=== PATIENT | female | born 1970 | race Caucasian/White ===

== ENCOUNTER → 2016-09-14 | Outpatient (CLI) | payer BC ==
[2016-09-14 12:22] VITALS: BMI 50.1
== END | disposition home or self-care (01) ==
LOC: BARWHC3 08:35
PROVIDERS: ATTEND Surgery Plastic and Reconstructive Surgery
DX: Z71.3 Dietary counseling and surveillance (principal); E66.01 Morbid (severe) obesity due to excess calories; Z68.43 Body mass index [BMI] 50.0-59.9, adult
CPT/HCPCS: 97804

== ENCOUNTER → 2016-09-17 | Outpatient (CLI) | payer BC ==
[2016-09-17 11:07] LABS: EKG EKG PERFORMED
[2016-09-17 11:36] LABS: Basophils # (A) 0.1 k/uL (0-0.2); Basophils % (A) 1 %; CH 29.3; CHCM 32.8; Eosinophils # (A) 0.1 k/uL (0-0.7); Eosinophils % (A) 2 %; HCT 50.6 % (34.0-46.0); HDW 2.48; HGB 16.3 gm/dL (11.4-16.0); Luc # (Auto) 0.21; Luc % (Auto) 3; Lymphocytes # (A) 2.4 k/uL (1.0-4.8); Lymphocytes % (A) 35 %; MCH 28.9 pg (25.0-35.0); MCHC 32.2 g/dL (31.0-37.0); MCV 89.6 fL (80.0-100.0); Mean Platelet Volume 5.9; Monocytes # (A) 0.3 k/uL (0-1.0); Monocytes % (A) 5 %; Neutrophils # (A) 3.6 k/uL (1.3-7.7); Neutrophils % (A) 54 %; RBC 5.65 m/uL (3.80-5.40); RDW 12.9 % (11.5-15.5); WBC 6.8 k/uL (3.8-10.6); WBC (Perox) 6.96
[2016-09-17 12:07] LABS: ALT 89 U/L (9-52); AST 48 U/L (14-36); Alkaline Phosphatase 117 U/L (38-126); Anion Gap 14 mmol/L; Blood Urea Nitrogen 14 mg/dL (7-17); Calcium 9.7 mg/dL (8.4-10.2); Carbon Dioxide 25 mmol/L (22-30); Chloride 101 mmol/L (98-107); Glucose 162 mg/dL (74-99); Non-African American GFR(MDRD) >60 (>60 ml/min/1.73 sqM); Potassium 4.5 mmol/L (3.5-5.1); Sodium 140 mmol/L (137-145); Total Bilirubin 0.7 mg/dL (0.2-1.3); Total Protein 7.3 g/dL (6.3-8.2)
== END | disposition home or self-care (01) ==
LOC: LABPAT 10:50
PROVIDERS: ATTEND Surgery Plastic and Reconstructive Surgery
DX: Z01.812 Encounter for preprocedural laboratory examination (principal); I10 Essential (primary) hypertension
CPT/HCPCS: 80053; 85025; 93005

== ENCOUNTER → 2016-09-17 | Outpatient (CLI) | payer BC ==
[2016-09-17 09:34] VITALS: BP 126/74; PULSE 79; RESP 16; TEMP 98.2; BMI 50.0
--- NOTE | 2016-09-27 13:36 | P.PN ---
Progress Note - Text DATE OF SERVICE: 09/17/2016 CHIEF COMPLAINT: Bariatric assessment. HISTORY OF PRESENT ILLNESS: Cynthia Holbrook is a 45-year-old female who is undergoing bariatric program. She initially had weighed about 299 pounds for a 5 foot 4 inch frame. Today she comes in weighing 291 pounds. Patient has lost 8 pounds in approximately 4 months. Body mass index is reduced from 51.4 down to 50. Her ideal body weight for her 5 feet 4 inch frame is 144 pounds. Incidentally, she has undergone work up and was found to be newly diagnosed diabetic. She reports chronic diarrhea as well as a strong family history of gallbladder disease. The patient is also looking into cholecystectomy. With her comorbidities including obstructive sleep, osteoarthritis, gastroesophageal reflux disease, Shelton's esophagus and diabetes type 2, she is looking into a Yayo-en-Y gastric bypass. She has completed medical risk assessment as well as medical weight loss attempt as well. PAST MEDICAL HISTORY: 1. Hypertension. 2. Morbid obesity. 3. Sleep apnea. 4. Gastroesophageal reflux disease. 5. Shelton esophagus. 6. Depression. 7. Cervical cancer. 8. Irritable bowel syndrome. 9. Newly diagnosed diabetes type 2, not insulin-dependent. PAST SURGICAL HISTORY: 1. Upper endoscopy. 2. Appendectomy. 3. Hysterectomy. MEDICATIONS: 1. Metformin. 2. Norvasc. 3. Valsartan hydrochlorothiazide. 4. Zantac. 5. Omeprazole. 6. [place]. 7. Prozac. ALLERGIES: IBUPROFEN. SOCIAL HISTORY: Remote tobacco user. Last tobacco use over 6 months. She is accompanied by her who is also a smoker. She has a young child about 10 years with special needs. FAMILY HISTORY: Pertinent for morbid obesity, including diabetes. REVIEW OF SYSTEMS: GASTROINTESTINAL: History of gastroesophageal reflux disease including hiatal hernia and Shelton's esophagus. Also strong family history of gallbladder disease including chronic diarrhea secondary to her gallbladder dyskinesia. ENDOCRINE: Newly diagnosed non-insulin dependent diabetes type 2. Previous hemoglobin A1c was about 8.7. No reports of underlying thyroid disorder. CONSTITUTIONAL: [place] body weight of 144 pounds for a 5-foot, 4-inch frame. Present weight of 297 pounds. She is 153 pounds overweight. HEENT: No troubles with vision or hearing. No reports of dysphagia. RESPIRATORY: History of obstructive sleep apnea. Denies any active COPD. Former tobacco user. CARDIOVASCULAR: History of hypertension, uncontrolled on at least 2 to 3 different medications. No recent myocardial infarction. No reports of cardiac history. MUSCULOSKELETAL: Has osteoarthritis of the lower back, including bilateral hips and knees. NEURO: No reports of stroke or seizure disorders. PSYCH: History of depression without suicidal ideation. HEMATOLOGIC: No reports of easy bruising or bleeding. PHYSICAL EXAM: VITAL SIGNS: 78.2, 79, 16, 126/74; 5 feet 4 inches; 291 pounds. Body mass index of 50. GENERAL: Well-developed, pleasant female in no acute distress. HEENT: No scleral icterus. Extraocular movements grossly intact. Moist buccal mucosa. NECK: Supple without lymphadenopathy. CHEST: Nonlabored respirations with equal bilateral excursions. CARDIOVASCULAR: Regular rate and regular rhythm. ABDOMEN: Protuberant, soft, nontender, nondistended. MUSCULOSKELETAL: No clubbing, cyanosis or edema. NEURO: No focal or lateralizing signs. Cranial nerves 2-12 grossly within normal limits. PSYCH: Appropriate affect. Alert and oriented to person, place and time. LABS: Hemoglobin elevated at 16.3, white count normal at 6.8. Glucose elevated at 162. Previous hemoglobin A1c was 8.7. AST elevated at 48, down from 66. ALT elevated at 89 down from 100. Vitamin A was low at 31. Vitamin D was low at 20.7. EKG demonstrates normal sinus rhythm. ASSESSMENT: 1. Morbid obesity due to excess calories. 2. Body mass index reduced from 51.4 down to 50. 3. Obstructive sleep apnea. 4. Newly diagnosed [id number]-hvsvqmhdb diabetes type 2. 5. Shelton esophagus. 6. Gastroesophageal reflux disease. 7. Depression without psychosis. 8. Fatty liver disease. 9. Biliary dyskinesia. 10. Family history of gallbladder disease. 11. Elevated AST. 12. Elevated ALT. 13. Vitamin D deficiency. 14. Vitamin A deficiency. 15. Elevated alkaline phosphatase. 16. Uncontrolled hypertension. 17. Personal history of gallbladder disorder. PLAN: 1. She has completed a recent EKG which demonstrated normal sinus rhythm. No additional cardiac evaluation needed at this time. 2. Her blood sugar glucose is moderately improved from over 300 to now in the low 100s. She is to continue metformin at this time. I have discussed with her that with surgical intervention, her diabetes may resolve prior to being discharged from the hospital. 3. In the interim, recommend 2 week high protein, low caloric diet to address underlying hepatomegaly. She did complete an ultrasound consistent with fatty liver disease. 4. As she has biliary dyskinesia including chronic diarrhea and family history of gallbladder disease, I do agree with cholecystectomy, which may be done at time of operation. 5. She has a personal history of multiple pelvic surgery as well as hysterectomy and appendectomy, all which puts her at risk for intra-abdominal adhesions. I did discuss with her the alternatives apart from Yayo-en-Y gastric bypass including a sleeve gastrectomy. She has agreed that should adhesions be cumbersome, then she may also consider sleeve gastrectomy. 6. An 8-page bariatric consent form was reviewed in detail with all benefits and risks. Particular risks as well as scar tissue and leaks were reviewed. Risks of strictures are also reviewed. 7. She has agreed to proceed with a Yayo-en-Y gastric bypass with cholecystectomy, possible sleeve gastrectomy. 8. Inpatient hospitalization 2 nights or greater noted. 9. Will need deep venous thrombosis prophylaxis. 10. Antibiotic prophylaxis. 11. Recommend CPAP machine at time of her hospitalization. 12. Will need at minimum 4-week for complete recovery including no lifting more than 4 pounds in 4 weeks for which she demonstrated understanding alongside with her .
== END | disposition home or self-care (01) ==
LOC: BARWHC3 08:53
PROVIDERS: ATTEND Surgery Plastic and Reconstructive Surgery
DX: Z01.818 Encounter for other preprocedural examination (principal); E66.01 Morbid (severe) obesity due to excess calories; Z68.43 Body mass index [BMI] 50.0-59.9, adult; E11.9 Type 2 diabetes mellitus without complications; G47.33 Obstructive sleep apnea (adult) (pediatric); K22.70 Barrett's esophagus without dysplasia; K21.9 Gastro-esophageal reflux disease without esophagitis; F32.9 Major depressive disorder, single episode, unspecified; K76.0 Fatty (change of) liver, not elsewhere classified; K82.8 Other specified diseases of gallbladder; R79.89 Other specified abnormal findings of blood chemistry; E55.9 Vitamin D deficiency, unspecified; E50.9 Vitamin A deficiency, unspecified; I10 Essential (primary) hypertension; K82.9 Disease of gallbladder, unspecified; Z84.89 Family history of other specified conditions; Z79.899 Other long term (current) drug therapy
CPT/HCPCS: 80307; 99211

== ENCOUNTER 2016-09-28 05:50 | Inpatient (IN) | payer BC ==
[~2016-09-28 05:50] MED LIST: DEXAMETHASONE SOD PHOSPHATE 10 MG/ML 1 ML VIAL IV ONE; FAMOTIDINE 20 MG/2 ML VIAL IV PRN; MIDAZOLAM 2 MG/2 ML VIAL IV PRN; ONDANSETRON 4 MG/2 ML VIAL IVP ONE; SCOPOLAMINE 1.5MG/72HR PATCH TRANSDERM ONE; ceFAZolin 3 GM in SODIUM CHLORIDE 0.9% 100 ML IVPB ONE
[2016-09-28] MEDS ORDERED: CHLORHEXIDINE GLUCONATE 15 ML CUP MUCOUS MEM ONE (06:16)
[2016-09-28] MEDS ORDERED: ACETAMINOPHEN IV (For NPO) 1,000 MG in EMPTY BAG 1 BAG IVPB ONE ×2 (06:16→12:00)
[2016-09-28] MEDS ORDERED: BUPIVACAINE LIPOSOME/PF 1.3% 20 ML, BUPIVACAIN-EPI 0.5%-1:200,000 25 ML, SODIUM CHLORID... MISCELLANE ONE ×3 (06:16)
[2016-09-28] MEDS ORDERED: ENOXAPARIN 40 MG/0.4 ML SYRINGE SQ STA (06:16)
[2016-09-28] MEDS ORDERED: PANTOPRAZOLE 40 MG/10 ML VIAL IV STA (06:16)
--- NOTE | 2016-09-28 06:23 | P.GSHP ---
History of Present Illness H&P Date: 09/28/16 DATE OF SERVICE: 09/28/2016 CHIEF COMPLAINT: Bariatric assessment. HISTORY OF PRESENT ILLNESS: Cynthia Holbrook is a 45-year-old female who is undergoing bariatric program. She initially had weighed 299 pounds. Body mass index is over 50. Her ideal body weight for her 5 feet 3 inch frame is 140 pounds. Incidentally, she has undergone work up and was found to be newly diagnosed diabetic. She reports chronic diarrhea as well as a strong family history of gallbladder disease. The patient is also looking into cholecystectomy. With her comorbidities including obstructive sleep, osteoarthritis, gastroesophageal reflux disease, Shelton's esophagus and diabetes type 2, she is looking into a Yayo-en-Y gastric bypass. She has completed medical risk assessment as well as medical weight loss attempt as well. PAST MEDICAL HISTORY: 1. Hypertension. 2. Morbid obesity. 3. Sleep apnea. 4. Gastroesophageal reflux disease. 5. Shelton esophagus. 6. Depression. 7. Cervical cancer. 8. Irritable bowel syndrome. 9. Newly diagnosed diabetes type 2, not insulin-dependent. PAST SURGICAL HISTORY: 1. Upper endoscopy. 2. Appendectomy. 3. Hysterectomy. MEDICATIONS: 1. Metformin. 2. Norvasc. 3. Valsartan hydrochlorothiazide. 4. Zantac. 5. Omeprazole. 6. [place]. 7. Prozac. ALLERGIES: IBUPROFEN. SOCIAL HISTORY: Remote tobacco user. Last tobacco use over 6 months. She is accompanied by her who is also a smoker. She has a young child about 10 years with special needs. FAMILY HISTORY: Pertinent for morbid obesity, including diabetes. REVIEW OF SYSTEMS: GASTROINTESTINAL: History of gastroesophageal reflux disease including hiatal hernia and Shelton's esophagus. Also strong family history of gallbladder disease including chronic diarrhea secondary to her gallbladder dyskinesia. ENDOCRINE: Newly diagnosed non-insulin dependent diabetes type 2. Previous hemoglobin A1c was about 8.7. No reports of underlying thyroid disorder. CONSTITUTIONAL: [place] body weight of 144 pounds for a 5-foot, 4-inch frame. Present weight of 297 pounds. She is 153 pounds overweight. HEENT: No troubles with vision or hearing. No reports of dysphagia. RESPIRATORY: History of obstructive sleep apnea. Denies any active COPD. Former tobacco user. CARDIOVASCULAR: History of hypertension, uncontrolled on at least 2 to 3 different medications. No recent myocardial infarction. No reports of cardiac history. MUSCULOSKELETAL: Has osteoarthritis of the lower back, including bilateral hips and knees. NEURO: No reports of stroke or seizure disorders. PSYCH: History of depression without suicidal ideation. HEMATOLOGIC: No reports of easy bruising or bleeding. PHYSICAL EXAM: VITAL SIGNS: 98.2, 79, 16, 126/74; 5 feet 3 inches; 297 pounds. Body mass index of 52.8. GENERAL: Well-developed, pleasant female in no acute distress. HEENT: No scleral icterus. Extraocular movements grossly intact. Moist buccal mucosa. NECK: Supple without lymphadenopathy. CHEST: Nonlabored respirations with equal bilateral excursions. CARDIOVASCULAR: Regular rate and regular rhythm. ABDOMEN: Protuberant, soft, nontender, nondistended. MUSCULOSKELETAL: No clubbing, cyanosis or edema. NEURO: No focal or lateralizing signs. Cranial nerves 2-12 grossly within normal limits. PSYCH: Appropriate affect. Alert and oriented to person, place and time. LABS: Hemoglobin elevated at 16.3, white count normal at 6.8. Glucose elevated at 162. Previous hemoglobin A1c was 8.7. AST elevated at 48, down from 66. ALT elevated at 89 down from 100. Vitamin A was low at 31. Vitamin D was low at 20.7. EKG demonstrates normal sinus rhythm. ASSESSMENT: 1. Morbid obesity due to excess calories. 2. Body mass index reduced from 51.4 down to 50. 3. Obstructive sleep apnea. 4. Newly diagnosed egp-fokqofu-chptueenv diabetes type 2. 5. Shelton esophagus. 6. Gastroesophageal reflux disease. 7. Depression without psychosis. 8. Fatty liver disease. 9. Biliary dyskinesia. 10. Family history of gallbladder disease. 11. Elevated AST. 12. Elevated ALT. 13. Vitamin D deficiency. 14. Vitamin A deficiency. 15. Elevated alkaline phosphatase. 16. Uncontrolled hypertension. 17. Personal history of gallbladder disorder. PLAN: 1. She has completed a recent EKG which demonstrated normal sinus rhythm. No additional cardiac evaluation needed at this time. 2. Her blood sugar glucose is moderately improved from over 300 to now in the low 100s. She is to continue metformin at this time. I have discussed with her that with surgical intervention, her diabetes may resolve prior to being discharged from the hospital. 3. In the interim, recommend 2 week high protein, low caloric diet to address underlying hepatomegaly. She did complete an ultrasound consistent with fatty liver disease. 4. As she has biliary dyskinesia including chronic diarrhea and family history of gallbladder disease, I do agree with cholecystectomy, which may be done at time of operation. 5. She has a personal history of multiple pelvic surgery as well as hysterectomy and appendectomy, all which puts her at risk for intra-abdominal adhesions. I did discuss with her the alternatives apart from Yayo-en-Y gastric bypass including a sleeve gastrectomy. She has agreed that should adhesions be cumbersome, then she may also consider sleeve gastrectomy. 6. An 8-page bariatric consent form was reviewed in detail with all benefits and risks. Particular risks as well as scar tissue and leaks were reviewed. Risks of strictures are also reviewed. 7. She has agreed to proceed with a Yayo-en-Y gastric bypass with cholecystectomy, possible sleeve gastrectomy. 8. Inpatient hospitalization 2 nights or greater noted. 9. Will need deep venous thrombosis prophylaxis. 10. Antibiotic prophylaxis. 11. Recommend CPAP machine at time of her hospitalization. 12. Will need at minimum 4-week for complete recovery including no lifting more than 4 pounds in 4 weeks for which she demonstrated understanding alongside with her . Past Medical History Past Medical History: Cancer, Diabetes Mellitus, GERD/Reflux, Hypertension Additional Past Medical History / Comment(s): Barrets esophagus, back pain, had cervical cancer 1990. Irritable bowel, newly placed on diabetic medication History of Any Multi-Drug Resistant Organisms: None Reported Past Surgical History: Appendectomy, Hysterectomy Past Anesthesia/Blood Transfusion Reactions: No Reported Reaction Past Psychological History: No Psychological Hx Reported Smoking Status: Former smoker Past Alcohol Use History: None Reported Additional Past Alcohol Use History / Comment(s): quit smoking 2015, smoked since age of 14-2ppd Past Drug Use History: None Reported - Past Family History Mother Family Medical History: No Reported History Medications and Allergies Home Medications Medication Instructions Recorded Confirmed Type FLUoxetine HCL [PROzac] 20 mg PO DAILY 07/21/16 09/24/16 History Valsartan/Hydrochlorothiazide 1 each PO DAILY 07/21/16 09/24/16 History [Valsartan-Hctz 320-25 mg Tab] amLODIPine [Norvasc] 10 mg PO DAILY 07/21/16 09/24/16 History metFORMIN HCL [Glucophage] 500 mg PO BID 09/17/16 09/24/16 History Allergies Allergy/AdvReac Type Severity Reaction Status Date / Time ibuprofen [From Motrin] AdvReac Abdominal Verified 09/24/16 11:15 Pain
[2016-09-28] MEDS ORDERED: LIDOCAINE 1% 20 ML VIAL (10MG/ML) FOR IV START INTRADERMA ONE (07:00)
[2016-09-28 07:14] LABS: Glucose,Whole Blood 127 mg/dL (75-99)
[2016-09-28] MEDS ORDERED: NEOSTIGMINE 1 MG/ML 10 ML VIAL ONE (07:30)
[2016-09-28] MEDS ORDERED: ROCURONIUM BROMIDE 10 MG/ML 10 ML VIAL IV ONE (07:30)
[2016-09-28] MEDS ORDERED: PROPOFOL 10 MG/ML 20 ML VIAL IV ONE (07:30)
[2016-09-28] MEDS ORDERED: GLYCOPYRROLATE 0.2 MG/ML 2 ML VIAL ONE (07:30)
[2016-09-28] MEDS ORDERED: MIDAZOLAM 2 MG/2 ML VIAL ONE (07:30)
[2016-09-28] MEDS ORDERED: SUCCINYLCHOLINE CHLORIDE VIAL 200 MG/10 ML VIAL IV ONE (07:30)
[2016-09-28] MEDS ORDERED: HYDROmorphone (PF) 1 MG/ML ONE (07:30)
[2016-09-28] MEDS ORDERED: fentaNYL (PF) 50 MCG/ML 2 ML AMP ONE (07:30)
[2016-09-28] MEDS ORDERED: LIDOCAINE 1% INJ 10MG/ML (20 ML MDV) ONE (07:30)
[2016-09-28] MEDS ORDERED: VECURONIUM 10 MG VIAL IV ONE (07:30)
[2016-09-28] MEDS ORDERED: LACTATED RINGERS 1,000 ML IV ONE ×3 (07:37→11:06)
[2016-09-28] MEDS ORDERED: diphenhydrAMINE 50 MG/ML 1 ML VIAL IVP PRN (11:16)
[2016-09-28] MEDS ORDERED: HYOSCYAMINE ORAL DROPS 1.875 MG/15 ML BOTTLE PO PRN (11:16)
[2016-09-28] MEDS ORDERED: HYDROcodone/APAP 15 ML SOLUTION PO PRN (11:16)
[2016-09-28] MEDS ORDERED: NALOXONE 0.4 MG/ML 1 ML VIAL IV PRN (11:16)
[2016-09-28] MEDS ORDERED: SIMETHICONE 40 MG/0.6 ML DROPS 2,000 MG/30 ML BOTTLE PO PRN (11:16)
--- NOTE | 2016-09-28 11:16 | P.PCN ---
Date of Procedure: 09/28/16 Preoperative Diagnosis: Morbid obesity, BMI 52, sleep apnea, diabetes type 2, hypertension, Shelton's esophagus Postoperative Diagnosis: Same, severe pelvic adhesions greater omentum to the anterior abdominal wall, severe interloop adhesions distal jejunum and ileum, hepatomegaly with early cirrhosis Procedure(s) Performed: Laparoscopic gastric bypass 75 cm, lysis of adhesions over 1 hour, endoscopic placement of [place] 25 mm, placement of Alphonso drain at left upper quadrant incision, intraoperative esophagogastrojejunoscopy Anesthesia: RENOA, local Surgeon: Ann Pollard Estimated Blood Loss (ml): 20 Pathology: none sent Condition: stable Disposition: floor Operative Findings: Severe hepatomegaly with early features of cirrhosis and fatty liver disease increasing complexity of case over an hour, severe intrapelvic lower abdominal wall adhesions from previous with interloop adhesions involving small bowel and greater omentum, 31 cm thoracic line, a 5 cm Yayo limb, 18 cm epigastric trocar placement, moderate sized gastric pouch secondary to hepatomegaly obscuring visualization of case
[2016-09-28 11:40] LABS: Glucose,Whole Blood 227 mg/dL (75-99)
[2016-09-28] MEDS: INSULIN LISPRO (humaLOG) 300 UNIT/3 ML VIAL SQ SCH ×2 (11:44→18:14)
[2016-09-28] MEDS: MAGNESIUM SULFATE-D5W PMX 1 GM in DEXTROSE/WATER 1 100ML.BAG IVPB SCH ×2 (11:54→13:21)
[2016-09-28] MEDS: HYDROmorphone 1 MG/ML 1 ML SYRINGE IVP PRN ×4 (11:56→19:51)
[2016-09-28] MEDS: ALBUTEROL NEBULIZED 2.5 MG/3 ML INHALATION SCH ×3 (12:13→20:35)
[2016-09-28] MEDS: 0.9% NACL WITH KCL 20 MEQ/L 1,000 ML IV SCH ×2 (13:20→21:49)
[2016-09-28] MEDS: METOCLOPRAMIDE 5 MG/ML 2 ML VIAL IVP SCH ×2 (13:27→17:18)
[2016-09-28 13:52] VITALS: BMI 52.0
[2016-09-28] MEDS: LACTATED RINGERS 1,000 ML IV SCH (13:52)
[2016-09-28] MEDS: ceFAZolin 3 GM in SODIUM CHLORIDE 0.9% 100 ML IVPB SCH (16:25)
--- NOTE | 2016-09-28 16:40 | P.OP ---
Date of Procedure: 09/28/16 Description of Procedure: SURGEON: SIGIFREDO FRY MD CHIEF COMMUNICATIONS OFFICER: GENESIS UMANA. PREOPERATIVE DIAGNOSES: 1. Morbid obesity due to excess calories. 2. Body mass index 53.1 to 52 3. Obstructive sleep apnea. 4. Newly diagnosed ddc-[id number] diabetes type 2. 5. Shelton esophagus. 6. Gastroesophageal reflux disease. 7. Depression without psychosis. 8. Fatty liver disease. 9. Biliary dyskinesia. 10. Family history of gallbladder disease. 11. Elevated AST. 12. Elevated ALT. 13. Vitamin D deficiency. 14. Vitamin A deficiency. 15. Elevated alkaline phosphatase. 16. Uncontrolled hypertension with hypertensive heart disease. 17. Personal history of gallbladder disorder. 18. Previous history of cervical cancer with hysterectomy. 19. Irritable bowel syndrome. POSTOPERATIVE DIAGNOSES: 1. Morbid obesity due to excess calories. 2. Body mass index 53.1 to 52 3. Obstructive sleep apnea. 4. Newly diagnosed vll-wcvquxu-snpqjoeto diabetes type 2. 5. Shelton esophagus. 6. Gastroesophageal reflux disease. 7. Depression without psychosis. 8. Fatty liver disease. 9. Biliary dyskinesia. 10. Family history of gallbladder disease. 11. Elevated AST. 12. Elevated ALT. 13. Vitamin D deficiency. 14. Vitamin A deficiency. 15. Elevated alkaline phosphatase. 16. Uncontrolled hypertension with hypertensive heart disease. 17. Personal history of gallbladder disorder. 18. Previous history of cervical cancer with hysterectomy. 19. Irritable bowel syndrome. 20. Severe lower abdominal adhesions of greater omentum to anterior abdominal wall and interloop adhesions distal jejunum and ileum. 21. Hepatomegaly with early liver cirrhosis. OPERATION: 1. Laparoscopic lysis of adhesions over 1 hour lower abdomen and pelvic adhesions involving greater omentum to anterior abdominal wall and interloop adhesions distal jejunum and ileum. 2. Laparoscopic Yayo-en-Y gastric bypass, 75 cm antecolic and gastric Yayo limb , with 25 mm EEA. 3. Endoscopic placement of 25 mm Orvil using upper endoscopy. 4. Intraoperative esophagogastrojejunoscopy. 5. Application of OptiFoam dressing. 6. Placement of quarter inch Clayton drain left upper quadrant incision. ANESTHESIA: 85 mL Exparel with sensorcaine with epinephrine and normal saline mixture. ESTIMATED BLOOD LOSS: 20 mL SPECIMENS REMOVED: None. COMPLICATIONS: None. INDICATIONS: Cynthia Holbrook is a 45-year-old female who is undergoing bariatric program. She initially had weighed 299 pounds. Body mass index is over 50. Her ideal body weight for her 5 feet 3 inch frame is 140 pounds. Her body mass index was 53.1. Today she comes in weighing 293 pounds. She has lost 6 pounds. With her comorbidities including obstructive sleep, osteoarthritis, gastroesophageal reflux disease, Shelton's esophagus and diabetes type 2, she is looking into a Yayo-en-Y gastric bypass. She has completed medical risk assessment as well as medical weight loss attempt as well. She has family history of gallbladder disease, cholecystectomy was offered. All surgical options for morbid obesity had been described using the [place] bariatric surgery collaborative comorbidity resolution including complication risk score. The patient had elected for a gastric bypass with possible sleeve gastrectomy. A second-generation bariatric consent form was described in detail including the possibility of protein malnutrition, leaks, gastrojejunal stricture, venous thrombosis for which she demonstrated understanding. Benefits and risks of the procedure were described at length. Informed consent was obtained. DESCRIPTION: The patient was brought into the operating room theater. She was placed on a split leg table. Preoperatively she had received Lovenox subcutaneously for DVT prophylaxis. Additionally she had undergone Peridex oral solution as an oral decontaminant. After general induction, the abdomen was prepped and draped in standard sterile fashion. A Barnett catheter was placed. Ioban draping was placed along the abdomen. A 0 10 mm laparoscopic trocar entry was performed along the epigastrium approximately 18 cm distal to the xiphoid process. Her xiphoid to her umbilicus was 31 cm for her height of 5 foot 3 inches. Diagnostic laparoscopy demonstrated no injury to bowel, viscera, or mesentery. The liver surface was remarkable for severe fatty liver disease including moderate hepatomegaly and early features of cirrhosis. Severe lower abdominal adhesions from her previous hysterectomy was identified involving the greater omentum as well as the small bowel of the distal jejunum and ileum. No injury had occurred to the small bowel or viscera. Given the severe size of her liver obscuring clear view of the proximal stomach, no large hiatal hernia was identified. At the left upper quadrant 2- 12 mm trocars were placed 1 along the left midclavicular line and another along the anterior axillary line. In a mirror-chan fashion, 2 - 12 mm trocars were also placed along the right upper abdomen. To address the severe adhesions of the lower pelvis, a total of additional 12 mm ports were placed along the right lower abdomen and left lower abdomen under direct localization. The patient was repositioned to supine position with the bed levelled. Initial attention was brought to the adhesions of the lower pelvis. Using a combination of blunt dissection with a Kittner as well as Sonicision, the greater omentum adhesions were cleared from the anterior abdominal wall. Separately, interloop adhesions involving the small bowel and the greater omentum were addressed using a disposable endoscopic scissor. Lysis of adhesions had occurred for over an hour to be able to perform the patient's gastric bypass. No additional internal hernias of the omentum was identified. No enterotomies had occurred throughout the entire case. Next, attention was brought to creation of the jejunojejunostomy. The transverse mesocolon, including the omentum, was reflected over the stomach. The ligament of Treitz was identified and measured 60 cm antegrade. The jejunum was divided at the 60 cm point after using metered graspers for measurement. The biliopancreatic limb was held in place by the water quality assistant. The Yayo limb was then measured 75 cm distally to avoid tension along the proposed gastrojejunal anastomosis. The Yayo limb was marked using a Clayton drain and 2-0 silk on an Endo Stitch along its proximal staple edge. At 75 cm along the anti-mesenteric border of the Yayo limb, a jejunojejunostomy was proposed whereby enterotomies were created along the biliopancreatic limb including the Yayo limb using a suction Bovie cautery. The enterotomies were widened using a [place]. A bidirectional fire was performed whereby from the right side a 45 mm sheth load was fired. From the left side a separate 45 mm firing had occurred, creating a 90 mm jejunojejunostomy. The defect was then closed using a 60 mm sheth load. The jejunojejunostomy was found to be hemostatic. Attention was now brought to the creation of the gastrojejunostomy. Placement of a medium size Jordan liver retractor was used to elevate the left lobe of the liver for greater visualization of the upper abdomen, particularly the superior pole of the stomach. Given the moderate hepatomegaly including severe fatty liver disease, difficult exposure of the superior pole of the stomach was obtained. The patient was then placed in steep reverse Trendelenburg. The Jordan liver retractor was held in place using an iron marketing summer intern. Additional retractors using a retrogastric dissector was used to elevate the left lobe of the large liver to obtain views of the superior stomach. Given the limited view of the stomach and large size the liver, a long gastric pouch was deemed necessary to limit harm and potential bleeding for the patient. Along the lesser curvature of the stomach between the third and fourth veins, dissection was made along the retrogastric space to allow first firing of the CovFoodyen Tri-Staple purple load. Once adequately mobilized, an initial firing using a 60 mm purple load was performed perpendicular to the lesser curvature of the stomach. To completely divide the pouch from the remnant stomach, two tissue reinforced 60 mm purple loads were fired towards the angle of His. A total of 3 - 60 mm purple staplers were used to create the gastric pouch. Hemostasis was checked with electro-Bovie cautery along the left lateral edge of the gastric remnant stomach. The patient was prepared for placement of an Orvil. The patient was Mallampati 3. A 25-mm Orvil was selected. I went to the head of the bed to perform an intraoperative esophagogastroduodenoscopy. A pediatric Olympus gastroscope was placed along the posterior oropharynx whereby the tongue was large and the patient was anterior upon entry. The scope was passed to the pouch and given the angulation into the pouch, and endoscopic placement of the Orvil was performed. The scope was retrieved. A snare device was placed through the scope and used grasp the tube tip of the 25 mm Orvil. The Orvil tip was navigated to the distal portion of the gastric pouch and placed anterior to the staple line. Via the water quality assistant, a gastrotomy was placed along the tip of the tubing. I then scrubbed back into the case and the Orvil tubing was navigated through the left inferior lateral port at the midclavicular line. The snare was cut using an endoscopic scissor. I then went back to the head of the bed for retrieval of the scope and snare. I scrubbed back into the case. The Orvil was then carefully and successfully navigated with the help of the nurse industrial arts teacher into the gastric pouch. The sutures were identified and divided. The tubing was from the 25 mm anvil. Using aseptic technique all instruments including port sites were exchanged. As the Orvil had been placed, the blind jejunal limb was brought proximally into the upper abdomen. No torsion was found upon the Yayo limb. No tension was identified as the limb was brought along the upper abdomen. The blind jejunal limb was opened using a cordless Harmonic scalpel. The 25-mm EEA stapler was brought through the left anterior lateral port site from the left side. Please note that the trocars from the Orvil tubing, including the port, were removed to minimize contamination from the oral braeden. The EEA stapler was brought through the open jejunal limb and its needle was deployed at the antimesenteric border where the anvil were mated for approximately 1 minute upon firing. The stapler was removed after irrigating the shaft of the instrument with warm normal saline. Donuts along the jejunum was thick and intact however along the stomach was thin and incomplete. The open jejunal limb defect was closed using a 60 mm sheth load after releasing any tension from the blind jejunal limb. Hemostasis was checked with Sonicision along the blind jejunal limb mesentery. Care was taken to avoid any long blind limb to avoid candycane syndrome. Reinforcement sutures were placed along the gastrojejunal anastomosis at 6:00 posteriorly, 9:00 and 3 o'clock position anteriorly. Closure of the mesenteric defects was performed, initially of the Hercules defect using 2-0 silk on an Endo Stitch and a Lapra-Ty and the jejunojejunostomy mesenteric defect (later in the case when the patient was levelled.) I then went to the head of the bed to perform the esophagogastrojejunoscopy and a leak test. An Olympus gastroscope was passed along the posterior oropharynx which was unremarkable for any injury to the vocal cords. The scope was passed down to the proximal portion of the pouch, whereby no active bleeding was encountered. Excellent visualization of the gastrojejunostomy anastomosis, including the Yayo limb was encountered with endoscopic image obtained. The anastomosis was found to be patent. The gastrointestinal tract was desufflated. No evidence of intraoperative leak was encountered as the gastric pouch and anastomosis were submerged under normal saline solution. I then went back to the bedside of the patient, whereby with coordinated effort of the water quality assistant, irrigation was aspirated from the upper abdominal cavity. Tisseel was placed circumferentially over the anastomosis of the gastrojejunostomy. Given the severe hepatomegaly including fatty liver disease and cirrhosis, a cholecystectomy was deferred at this time. The port correlating with the EEA stapler device fascial defect was closed using a Simon Balderrama and 0 Vicryl with 2 separate sutures. All instruments and pneumoperitoneum were evacuated from the abdominal cavity. The port correlating with the EEA stapler device was copiously irrigated with 3 L of warm normal saline solution and 50 mL of hydrogen peroxide. A quarter inch Alphonso drain was placed along the EEA stapler site and tacked using 2-0 nylon. The rest of incisions were reapproximated using 3-0 Vicryl for deep subcutaneous tissue and dermis followed by 4-0 Monocryl in a running subcuticular fashion. For local anesthetic, 85 mL of Exparel including Sensorcaine with epinephrine and normal saline mixture was infiltrated along the skin for postop analgesia. Dermabond was applied to the skin. OptiFoam dressing was placed along the EEA stapler site. At the end of the procedure, needle, sponge and instrument count had been verified correct by the mechanical service technician. She had tolerated the procedure well and was taken to the postanesthesia unit in stable condition. Total skin to skin time was 190 minutes. Intraoperative films were reviewed with the patient's family who are very pleased with the level of care. FINDINGS: 1. Negative intraoperative esophagogastrojejunoscopy leak test. 2. Severe fatty liver disease and hepatomegaly adding at least additional hour of complexity to her case. 3. All defects including jejunojejunostomy Hercules defects were closed. 4. Total of 3 staple loads including 3 - 60 mm Covidien tri-stapler purple loads (2 tissue reinforced staplers along the medial gastric remnant) used to create the gastric pouch. 5. Gastrojejunostomy created using 25 mm Orvil. 6. Jejunojejunostomy created with 90 mm paul-lumen 7. Xiphoid to umbilical height of 31 cm. 8. 75 cm Yayo limb performed to minimize tension of gastrojejunal anastomosis
[2016-09-28 17:03] LABS: Glucose,Whole Blood 166 mg/dL (75-99)
[2016-09-28] MEDS: ONDANSETRON 4 MG/2 ML VIAL IVP SCH (17:18)
--- NOTE | 2016-09-28 17:57 | P.PN ---
Subjective Principal diagnosis: Morbid obesity The patient is postop day 0 status post Yayo-en-Y gastric bypass and extensive lysis of adhesions. She has mild nausea. Pain is controlled. She is ambulating. She is tolerating ice chips. Objective - Vital Signs Vital signs: Vital Signs Temp 97.4 F L 09/28/16 17:06 Pulse 100 09/28/16 17:06 Resp 16 09/28/16 17:06 BP 121/73 09/28/16 17:06 Pulse Ox 86 L 09/28/16 17:06 Intake & Output 09/27/16 09/28/16 09/28/16 18:59 06:59 18:59 Intake Total 2150 Output Total 270 Balance 1880 Weight 133.2 kg 133.2 kg Intake: IV 2150 Output: Urine 250 Estimated Blood Loss 20 - Exam GENERAL: Well developed and in no acute distress. Pleasant. HEENT: No sclera icterus. Extraocular movements grossly intact. Moist buccal mucosa. Head is atraumatic, normocephalic. Hears conversational speech. No nasal drainage. NECK: Supple without lymphadenopathy. CHEST: Non-labored respirations and equal bilateral excursions. CARDIOVASCULAR: Regular rate and rhythm. Palpable 2+ radial pulses. ABDOMEN: Soft. Nondistended. All stab incisions clean dry and intact. No signs of infection. Dressings intact. MUSCULOSKELETAL: No clubbing, cyanosis or edema. NEUROLOGIC: No focal or lateralizing signs. PSYCH: Appropriate affect. Alert and oriented to person, place and time. - Labs Labs: Abnormal Lab Results - Last 24 Hours (Table) 09/28/16 09/28/16 09/28/16 Range/Units 07:00 11:39 16:50 POC Glucose (mg/dL) 127 H 227 H 166 H (75-99) mg/dL Assessment and Plan (1) Morbid obesity with BMI of 50.0-59.9, adult Status: Chronic (2) Diabetes type 2, controlled Status: Chronic (3) Hypertensive heart disease Status: Chronic (4) Obstructive sleep apnea (adult) (pediatric) Status: Chronic (5) Shelton esophagus Status: Chronic (6) Gastroesophageal reflux Status: Chronic (7) S/P gastric bypass Status: Acute (8) Pelvic adhesions Status: Chronic (9) Hepatomegaly Status: Chronic (10) Fatty liver disease, nonalcoholic Status: Chronic (11) Cirrhosis Status: Chronic Plan: 1. Continue with antiemetics. 2. Replace magnesium, goal over 2.0. 3. DVT prophylaxis. Low-dose Lovenox secondary to high risk of bleed. 4. Antibiotic prophylaxis. 5. Disposition in 48 hours given high risk nature of case.
[2016-09-28 20:16] LABS: Glucose,Whole Blood 176 mg/dL (75-99)
[2016-09-28] MEDS: ENOXAPARIN 40 MG/0.4 ML SYRINGE SQ SCH (21:52)
[2016-09-29 00:51] LABS: Glucose,Whole Blood 157 mg/dL (75-99)
[2016-09-29] MEDS: HYDROmorphone 1 MG/ML 1 ML SYRINGE IVP PRN ×2 (00:54→07:45)
[2016-09-29] MEDS: METOCLOPRAMIDE 5 MG/ML 2 ML VIAL IVP SCH ×3 (00:56→11:43)
[2016-09-29] MEDS: ONDANSETRON 4 MG/2 ML VIAL IVP SCH ×4 (01:02→11:43)
[2016-09-29] MEDS: ceFAZolin 3 GM in SODIUM CHLORIDE 0.9% 100 ML IVPB SCH ×3 (01:05→15:34)
[2016-09-29] MEDS: INSULIN LISPRO (humaLOG) 300 UNIT/3 ML VIAL SQ SCH ×3 (01:08→12:21)
[2016-09-29 02:28] VITALS: RESP 16
[2016-09-29] MEDS: LACTATED RINGERS 1,000 ML IV SCH (04:56)
[2016-09-29] MEDS: 0.9% NACL WITH KCL 20 MEQ/L 1,000 ML IV SCH (04:57)
[2016-09-29 05:56] LABS: Glucose,Whole Blood 147 mg/dL (75-99)
[2016-09-29] MEDS ORDERED: 1: MVI, ADULT NO.4 WITH VIT K 10 ML, THIAMINE 100 MG, FOLIC ACID 1 MG, POTASSIUM CHLORID IV SCH ×6 (08:00)
[2016-09-29] MEDS: ALBUTEROL NEBULIZED 2.5 MG/3 ML INHALATION SCH ×3 (08:17→16:15)
[2016-09-29 08:23] LABS: Basophils % (A) 0 %; CH 29.3; CHCM 32.4; Eosinophils % (A) 0 %; HCT 40.1 % (34.0-46.0); HDW 2.39; Luc # (Auto) 0.12; Luc % (Auto) 2; Lymphocytes # (A) 0.7 k/uL (1.0-4.8); Lymphocytes % (A) 9 %; MCV 90.6 fL (80.0-100.0); Mean Platelet Volume 6.4; Monocytes # (A) 0.4 k/uL (0-1.0); Monocytes % (A) 6 %; Neutrophils # (A) 5.9 k/uL (1.3-7.7); Neutrophils % (A) 83 %; RBC 4.42 m/uL (3.80-5.40); RDW 13.4 % (11.5-15.5); WBC 7.1 k/uL (3.8-10.6); WBC (Perox) 7.64
[2016-09-29] MEDS: ENOXAPARIN 40 MG/0.4 ML SYRINGE SQ SCH (08:27)
[2016-09-29 08:33] LABS: HGB 12.8 gm/dL (11.4-16.0)
[2016-09-29 08:42] LABS: Anion Gap 7 mmol/L; Blood Urea Nitrogen 7 mg/dL (7-17); Calcium 8.3 mg/dL (8.4-10.2); Carbon Dioxide 32 mmol/L (22-30); Chloride 104 mmol/L (98-107); Magnesium 2.2 mg/dL (1.6-2.3); Non-African American GFR(MDRD) >60 (>60 ml/min/1.73 sqM); Phosphorous 2.3 mg/dL (2.5-4.5); Potassium 4.7 mmol/L (3.5-5.1); Sodium 143 mmol/L (137-145)
[2016-09-29] MEDS ORDERED: ENOXAPARIN 60 MG/0.6 ML SYRINGE SQ SCH (09:00)
[2016-09-29] MEDS ORDERED: PANTOPRAZOLE 40 MG/10 ML VIAL IV SCH (09:00)
--- NOTE | 2016-09-29 09:40 | P.PN ---
Subjective Principal diagnosis: Morbid obesity The patient is postop day 1 status post Yayo-en-Y gastric bypass and extensive lysis of adhesions. She has mild nausea. Pain is controlled. She is ambulating. She is tolerating ice chips and liquids. BSG is under 200. Objective - Vital Signs Vital signs: Vital Signs Temp 98.6 F 09/29/16 07:43 Pulse 95 09/29/16 07:43 Resp 16 09/29/16 07:43 BP 130/74 09/29/16 07:43 Pulse Ox 94 L 09/29/16 07:43 Intake & Output 09/28/16 09/29/16 09/29/16 18:59 06:59 18:59 Intake Total 2150 1200 650 Output Total 270 Balance 1880 1200 650 Weight 133.2 kg Intake: IV 2150 1200 0.9% NaCl with KCl 20 Meq 1200 /l 1,000 ml @ 100 mls/hr IV .BY DURATION ROLO Rx#: [id number] Oral 650 Output: Urine 250 Estimated Blood Loss 20 Other: Voiding Method Toilet # Voids 2 - Exam GENERAL: Well developed and in no acute distress. Pleasant. HEENT: No sclera icterus. Extraocular movements grossly intact. Moist buccal mucosa. Head is atraumatic, normocephalic. Hears conversational speech. No nasal drainage. NECK: Supple without lymphadenopathy. CHEST: Non-labored respirations and equal bilateral excursions. CARDIOVASCULAR: Regular rate and rhythm. Palpable 2+ radial pulses. ABDOMEN: Soft. Nondistended. All stab incisions clean dry and intact. No signs of infection. Dressings intact. Minimal serosanguinous drainage. MUSCULOSKELETAL: No clubbing, cyanosis or edema. NEUROLOGIC: No focal or lateralizing signs. PSYCH: Appropriate affect. Alert and oriented to person, place and time. - Labs CBC & Chem 7: 09/29/16 07:57 09/29/16 07:57 Labs: Abnormal Lab Results - Last 24 Hours (Table) 09/28/16 09/28/16 09/28/16 Range/Units 11:39 16:50 19:59 Lymphocytes # (1.0-4.8) k/uL Carbon Dioxide (22-30) mmol/L POC Glucose (mg/dL) 227 H 166 H 176 H (75-99) mg/dL Calcium (8.4-10.2) mg/dL Phosphorus (2.5-4.5) mg/dL 09/29/16 09/29/16 09/29/16 Range/Units 00:48 05:54 07:57 Lymphocytes # 0.7 L (1.0-4.8) k/uL Carbon Dioxide (22-30) mmol/L POC Glucose (mg/dL) 157 H 147 H (75-99) mg/dL Calcium (8.4-10.2) mg/dL Phosphorus (2.5-4.5) mg/dL 09/29/16 Range/Units 07:57 Lymphocytes # (1.0-4.8) k/uL Carbon Dioxide 32 H (22-30) mmol/L POC Glucose (mg/dL) (75-99) mg/dL Calcium 8.3 L (8.4-10.2) mg/dL Phosphorus 2.3 L (2.5-4.5) mg/dL Assessment and Plan (1) Morbid obesity with BMI of 50.0-59.9, adult Status: Chronic (2) Diabetes type 2, controlled Status: Chronic (3) Hypertensive heart disease Status: Chronic (4) Obstructive sleep apnea (adult) (pediatric) Status: Chronic (5) Shelton esophagus Status: Chronic (6) Gastroesophageal reflux Status: Chronic (7) S/P gastric bypass Status: Acute (8) Pelvic adhesions Status: Chronic (9) Hepatomegaly Status: Chronic (10) Fatty liver disease, nonalcoholic Status: Chronic (11) Cirrhosis Status: Chronic (12) Hypophosphatemia Status: Acute Plan: 1. Correct low phosphate. 2. She is doing very well. 3. BP controlled without medications. 4. BSG controlled. 5. Plan for discharge home after correction of electrolytes.
[2016-09-29] MEDS: SODIUM PHOSPHATE 10 MMOL in SODIUM CHLORIDE 0.9% 250 ML IVPB SCH ×3 (11:39→15:53)
[2016-09-29 11:47] LABS: Glucose,Whole Blood 153 mg/dL (75-99)
[2016-09-29 12:50] LABS: Hemoglobin A1C 9.7 % (4.2-6.1)
[2016-09-29 15:10] VITALS: BP 132/73; PULSE 111; TEMP 98.7
[2016-09-29 17:01] LABS: Glucose,Whole Blood 180 mg/dL (75-99)
--- NOTE | 2016-09-30 06:53 | P.DS ---
Providers Date of admission: 09/28/16 05:50 Expected date of discharge: 09/29/16 Attending physician: Ann Pollard Primary care physician: Stated None - Discharge Diagnosis(es) (1) Morbid obesity with BMI of 50.0-59.9, adult Status: Chronic (2) Diabetes type 2, controlled Status: Chronic (3) Hypertensive heart disease Status: Chronic (4) Obstructive sleep apnea (adult) (pediatric) Status: Chronic (5) Shelton esophagus Status: Chronic (6) Gastroesophageal reflux Status: Chronic (7) S/P gastric bypass Status: Acute (8) Pelvic adhesions Status: Chronic (9) Hepatomegaly Status: Chronic (10) Fatty liver disease, nonalcoholic Status: Chronic (11) Cirrhosis Status: Chronic (12) Hypophosphatemia Status: Acute Hospital Course: POSTOPERATIVE DIAGNOSES: 1. Morbid obesity due to excess calories. 2. Body mass index 53.1 to 52 3. Obstructive sleep apnea. 4. Newly diagnosed ktk-hpsmevi-unmuqayvt diabetes type 2. 5. Shelton esophagus. 6. Gastroesophageal reflux disease. 7. Depression without psychosis. 8. Fatty liver disease. 9. Biliary dyskinesia. 10. Family history of gallbladder disease. 11. Elevated AST. 12. Elevated ALT. 13. Vitamin D deficiency. 14. Vitamin A deficiency. 15. Elevated alkaline phosphatase. 16. Uncontrolled hypertension with hypertensive heart disease. 17. Personal history of gallbladder disorder. 18. Previous history of cervical cancer with hysterectomy. 19. Irritable bowel syndrome. 20. Severe lower abdominal adhesions of greater omentum to anterior abdominal wall and interloop adhesions distal jejunum and ileum. 21. Hepatomegaly with early liver cirrhosis. COURSE: Cynthia Holbrook is a 45-year-old female who presents from the bariatric program. She initially had weighed 299 pounds. Body mass index is over 50. Her ideal body weight for her 5 feet 3 inch frame is 140 pounds. Her body mass index was 53.1. Today she comes in weighing 293 pounds. She lost 6 pounds. With her comorbidities including obstructive sleep, osteoarthritis, gastroesophageal reflux disease, Shelton's esophagus and diabetes type 2, she is looking into a Yayo-en-Y gastric bypass. She completed medical risk assessment as well as medical weight loss attempt as well. The patient had elected for a gastric bypass. After surgery, she had expected nausea which was controlled with antiemetic. Her low magnesium was corrected. She was ambulating. She denied any increased dyspnea on exertion. The next day, she was tolerating liquids. Discharge bariatric diet instructions and medication review were performed. As her blood pressure was well-controlled, her blood pressure medications were discontinued to prevent risk of acute tubular necrosis and renal failure. Additionally, her blood sugars were improving. Prior to discharge, her electrolytes were corrected. Discharge instructions were carefully reviewed which she verbalized understanding with follow-up at the bariatric center in 24-48 hours. Pertinent Studies: None. Procedures: OPERATION: 1. Laparoscopic lysis of adhesions over 1 hour lower abdomen and pelvic adhesions involving greater omentum to anterior abdominal wall and interloop adhesions distal jejunum and ileum. 2. Laparoscopic Yayo-en-Y gastric bypass, 75 cm antecolic and gastric Yayo limb , with 25 mm EEA. 3. Endoscopic placement of 25 mm Orvil using upper endoscopy. 4. Intraoperative esophagogastrojejunoscopy. 5. Application of OptiFoam dressing. 6. Placement of quarter inch Alphonso drain left upper quadrant incision. Patient Condition at Discharge: Stable Plan - Discharge Summary New Discharge Prescriptions: HYDROcodone/APAP [[place] Elixir 7.5-325Mg/15Ml] 30 ml PO Q6HR PRN #480 ml PRN Reason: Pain Omeprazole 40 mg PO DAILY #90 capsule.dr Discharge Medication List FLUoxetine HCL [PROzac] 20 mg PO DAILY 07/21/16 [History] HYDROcodone/APAP [[place] Elixir 7.5-325Mg/15Ml] 30 ml PO Q6HR PRN #480 ml [Rx] Omeprazole 40 mg PO DAILY #90 capsule. 09/29/16 [Rx] Follow up Appointment(s)/Referral(s): Ann Pollard MD [STAFF PHYSICIAN] - 10/01/16 10:30 am (Bariatric Center) Patient Instructions/Handouts: Nutrition after Bariatric Surgery (GEN), Yayo- en-Y Gastric Bypass (DC) Activity/Diet/Wound Care/Special Instructions: No lifting over 4 pounds in 4 weeks. Liquid diet. Discharge Disposition: HOME SELF-CARE
[2016-09-30] MEDS ORDERED: BISACODYL 5 MG TABLET.DR PO PRN (08:00)
== END 2016-09-29 18:28 | disposition home or self-care (01) | DRG 621 ==
LOC: 2ORWHC 05:50 → 3SUR 11:11
PROVIDERS: ADMIT Surgery Plastic and Reconstructive Surgery; ATTEND Surgery Plastic and Reconstructive Surgery
PROC: 0D164ZA Bypass Stomach to Jejunum, Percutaneous Endoscopic Approach (ICD-10-PCS; principal; 2016-09-28 07:30)
PROC: 0DNS4ZZ (ICD-10-PCS; principal; 2016-09-28 07:30)
PROC: 0DN84ZZ Release Small Intestine, Percutaneous Endoscopic Approach (ICD-10-PCS; principal; 2016-09-28 07:30)
DX: E66.01 Morbid (severe) obesity due to excess calories (principal); I11.9 Hypertensive heart disease without heart failure; K74.60 Unspecified cirrhosis of liver; E50.9 Vitamin A deficiency, unspecified; E11.9 Type 2 diabetes mellitus without complications; E55.9 Vitamin D deficiency, unspecified; F32.9 Major depressive disorder, single episode, unspecified; G47.33 Obstructive sleep apnea (adult) (pediatric); K21.9 Gastro-esophageal reflux disease without esophagitis; K22.70 Barrett's esophagus without dysplasia; K58.0 Irritable bowel syndrome with diarrhea; K66.0 Peritoneal adhesions (postprocedural) (postinfection); K76.0 Fatty (change of) liver, not elsewhere classified; K82.8 Other specified diseases of gallbladder; M19.90 Unspecified osteoarthritis, unspecified site; Z68.43 Body mass index [BMI] 50.0-59.9, adult; Z87.891 Personal history of nicotine dependence; Z79.899 Other long term (current) drug therapy; Z85.41 Personal history of malignant neoplasm of cervix uteri; Z90.710 Acquired absence of both cervix and uterus
CPT/HCPCS: 80051; 82310; 82565; 83036; 83735; 84100; 84520; 85025; 92950; 94760

== ENCOUNTER → 2016-10-01 | Outpatient (CLI) | payer BC ==
[2016-10-01 11:35] VITALS: BP 147/82; PULSE 91; RESP 16; TEMP 98.1; BMI 51.1
[2016-10-01 11:56] LABS: CH 29.1; CHCM 32.1; HCT 38.6 % (34.0-46.0); HDW 2.37; HGB 12.5 gm/dL (11.4-16.0); MCH 29.5 pg (25.0-35.0); MCHC 32.4 g/dL (31.0-37.0); MCV 91.1 fL (80.0-100.0); Mean Platelet Volume 7.2; RBC 4.24 m/uL (3.80-5.40); WBC 9.4 k/uL (3.8-10.6)
[2016-10-01 11:59] LABS: ALT 377 U/L (9-52); AST 88 U/L (14-36); Alkaline Phosphatase 83 U/L (38-126); Anion Gap 11 mmol/L; Blood Urea Nitrogen 10 mg/dL (7-17); Calcium 8.8 mg/dL (8.4-10.2); Carbon Dioxide 29 mmol/L (22-30); Chloride 101 mmol/L (98-107); Glucose 123 mg/dL (74-99); Non-African American GFR(MDRD) >60 (>60 ml/min/1.73 sqM); Potassium 4.5 mmol/L (3.5-5.1); Sodium 141 mmol/L (137-145); Total Protein 6.4 g/dL (6.3-8.2)
[2016-10-05 07:10] LABS: Anabasine Urine <2.0 ng/mL (<2.0)
--- NOTE | 2016-11-22 21:16 | P.PN ---
Progress Note - Text DATE OF SERVICE: 10/01/2016 CHIEF COMPLAINT: Followup gastric bypass. HISTORY OF PRESENT ILLNESS: Cynthia Holbrook is a 46-year-old female, status post gastric bypass on 09/28/2016. Today she is postoperative day #3. She reports doing well. She has intermittent bloating. She is passing flatus. She reports she has stopped taking her pain medications. She does report a headache. Now she presents for further evaluation and management. At her height of 5 foot 4 inches, her initial weight was 299 pounds. Today she comes in weighing 297 pounds. Her ideal body weight is 144 pounds. She has lost only 2 pounds. Body mass index is reduced from 51.4 down to 51.2. She is still 154 pounds overweight. PHYSICAL EXAM: VITAL SIGNS: 98.1, 91, 16, 147/82; 5 foot 4; 297 pounds. Body mass of 51.2. ABDOMEN: Dressings were discontinued. No signs of cellulitis or infection. Soft, distended. GENERAL: Well-developed, pleasant female in no acute distress. HEENT: No scleral icterus. Extraocular movements grossly intact. Moist buccal mucosa. NECK: Supple without lymphadenopathy. CHEST: Nonlabored respirations with equal bilateral excursions. CARDIOVASCULAR: Regular rate and regular rhythm. MUSCULOSKELETAL: No clubbing, cyanosis or edema. NEURO: No focal or lateralizing signs. Cranial nerves 2-12 grossly within normal limits. PSYCH: Appropriate affect. Alert and oriented to person, place and time. ASSESSMENT: 1. Morbid obesity due to excess calories. 2. Body mass index of 51.2 down from 51.4. 3. Status post Yayo-en-Y gastric bypass. 4. Tobacco exposure. 5. Diabetes type 2, resolved. PLAN: 1. As she is high risk with exposure to nicotine, I have recommended followup in one week. 2. At this time her medications, particularly for her diabetes and multivitamin is on hold. 3. She may start her protein shake diet. 4. Recommend repeat of her labs. ADDENDUM: LABS: White count was normal at 9.4. Glucose was elevated at 123. AST was elevated at 80. ALT elevated at 377. Urine cotinine test was positive at 10.2. With her positive urine nicotine test, I have discussed with her that actually increases her risk of postoperative complications including wound infections. She reports exposure to secondhand smoke from her for which he will make more of a cautious effort to not smoke around her. As for elevated liver enzymes, this will be cautiously reviewed.
== END | disposition home or self-care (01) ==
LOC: BARWHC3 10:12
PROVIDERS: ATTEND Surgery Plastic and Reconstructive Surgery
DX: Z48.815 Encounter for surgical aftercare following surgery on the digestive system (principal); Z98.84 Bariatric surgery status; F17.200 Nicotine dependence, unspecified, uncomplicated
CPT/HCPCS: 80053; 80323; 85027; 99211

== ENCOUNTER → 2016-10-05 | Outpatient (CLI) | payer BC ==
[2016-10-05 15:09] VITALS: BMI 49.4
[2016-10-05 15:29] VITALS: BP 135/79; PULSE 79; TEMP 98.2
[2016-10-05 16:08] LABS: CH 29.3; CHCM 32.6; HCT 41.3 % (34.0-46.0); HDW 2.53; HGB 13.2 gm/dL (11.4-16.0); MCH 28.8 pg (25.0-35.0); MCHC 31.9 g/dL (31.0-37.0); MCV 90.1 fL (80.0-100.0); Mean Platelet Volume 6.7; RBC 4.59 m/uL (3.80-5.40); RDW 13.7 % (11.5-15.5); WBC 9.6 k/uL (3.8-10.6)
--- NOTE | 2016-11-16 12:34 | PN ---
DATE OF SERVICE: 10/05/2016 CHIEF COMPLAINT: Followup gastric bypass. HISTORY OF PRESENT ILLNESS: Cynthia Holbrook is a 46-year-old female who is status post Yayo-en-Y gastric bypass on 09/28/2016. She is now one week out. She reports low grade fevers. Separately, she also reports pain along her left upper quadrant incision. Her dressings were discontinued approximately 5 days ago. Now she presents for further evaluation and management. At her height of 5 foot 4 inches, her ideal body weight is 144 pounds. Her highest weight was 299 pounds. Today she comes in weighing 287 pounds. She has now lost 12 pounds. Weight loss since at least a week ago is another 3 pounds. Body mass index is reduced from 51.4 to 49.4. She denies any dysphagia at this time as well. PHYSICAL EXAM: VITAL SIGNS: 98.2, 79, 135/79, 16, 5 foot 4, 287 pounds. Body mass index 49.4. ABDOMEN: Soft, nondistended. Mild erythema noted along the left upper quadrant incision. At the bedside, the wound was opened and hematoma was evacuated. Cultures were obtained. MUSCULOSKELETAL: No clubbing, cyanosis. GENERAL: Well-developed, pleasant female in no acute distress. HEENT: No scleral icterus. Extraocular movements grossly intact. Moist buccal mucosa. NECK: Supple without lymphadenopathy. CHEST: Nonlabored respirations with equal bilateral excursions. CARDIOVASCULAR: Regular rate and regular rhythm. NEURO: No focal or lateralizing signs. Cranial nerves 2-12 grossly within normal limits. PSYCH: Appropriate affect. Alert and oriented to person, place and time. ASSESSMENT: 1. Morbid obesity due to excess calories. 2. Status post Yayo-en-Y gastric bypass. 3. Body mass index reduced from 51.4 down to 49.4. 4. Postoperative hematoma of the skin. PLAN: 1. On exam, she did have a hematoma. I have started her on Keflex prophylactically. 2. Continue with her protein shakes at this time. 3. Will repeat her white blood cell count. 4. Close followup at least on a weekly basis. ADDENDUM: White blood cell count and CBC reviewed. WBC was normal at 9.6. Hemoglobin is normal at 13.2. Overall, features consistent with contained hematoma. Otherwise, no surgical site infection identified. [facility]
== END | disposition home or self-care (01) ==
LOC: BARWHC3 14:45
PROVIDERS: ATTEND Surgery Plastic and Reconstructive Surgery
DX: Z48.815 Encounter for surgical aftercare following surgery on the digestive system (principal); Z71.3 Dietary counseling and surveillance; E66.01 Morbid (severe) obesity due to excess calories; Z68.42 Body mass index [BMI] 45.0-49.9, adult
CPT/HCPCS: 85027; 87070; 87205; 99211

== ENCOUNTER → 2016-10-07 | Outpatient (CLI) | payer BC ==
[2016-10-07 15:01] VITALS: BP 123/83; PULSE 69; RESP 14; TEMP 98.2; BMI 49.1
--- NOTE | 2016-11-16 13:25 | PN ---
DATE OF SERVICE: 10/07/2016. CHIEF COMPLAINT: Follow-up gastric bypass. HISTORY OF PRESENT ILLNESS: Cynthia Holbrook is a 46-year-old female status post gastric bypass on 09/28/2016. She is now postop day 9. Approximately 2 to 3 days ago she presented with discomfort along the left upper abdominal incisions, for which a hematoma was evacuated. She had been started on Keflex. She reports improvement of her wound and no reports of fevers or chills. Thus far, her cultures and not growing any significant organisms. She reports tolerating her foods. She is having a bowel movements. At her height of 5 feet 4 inches, her ideal body weight is 144 pounds. Her initial weight was 299 pounds. Today she comes in weighing 286 pounds. She has lost 13 pounds in approximately one week. Body mass index is reduced and 51.4 down to 49.1. Separately her blood sugar glucose has improved. PHYSICAL EXAM: VITAL SIGNS: 98.2, 69, 14, 123/83; 5 feet 4 inches; 286 pounds. Body mass index 49.1. ABDOMEN: Incision along the left upper quadrant without any evidence of cellulitis or infection. Dressings were changed. GENERAL: Well-developed, pleasant female in no acute distress. HEENT: No scleral icterus. Extraocular movements grossly intact. Moist buccal mucosa. NECK: Supple without lymphadenopathy. CHEST: Nonlabored respirations with equal bilateral excursions. CARDIOVASCULAR: Regular rate and regular rhythm. MUSCULOSKELETAL: No clubbing, cyanosis or edema. NEURO: No focal or lateralizing signs. Cranial nerves 2-12 grossly within normal limits. PSYCH: Appropriate affect. Alert and oriented to person, place and time. Laboratory results were reviewed, demonstrating no signs of leukocytosis. ASSESSMENT: 1. Morbid obesity due to excess calories. 2. History of Yayo-en-Y gastric bypass. 3. History of postoperative wound hematoma. 4. Body mass index reduced from 51.4 down to 49.1. PLAN: 1. Clinically, she reports developing yeast vaginitis from Keflex. Diflucan has been prescribed on her behalf. 2. Recommend close wound follow-up in one week. 3. Goal protein intake of over 60 grams advised. 4. I have asked her to follow up sooner for any issues. [facility]
== END | disposition home or self-care (01) ==
LOC: BARWHC3 14:14
PROVIDERS: ATTEND Surgery Plastic and Reconstructive Surgery
DX: Z48.815 Encounter for surgical aftercare following surgery on the digestive system (principal); E66.01 Morbid (severe) obesity due to excess calories; Z68.42 Body mass index [BMI] 45.0-49.9, adult; K91.870 Postprocedural hematoma of a digestive system organ or structure following a digestive system procedure; Z98.84 Bariatric surgery status; T36.1X5A Adverse effect of cephalosporins and other beta-lactam antibiotics, initial encounter
CPT/HCPCS: 99211

== ENCOUNTER → 2016-10-19 | Day surgery (SDC) | payer BC ==
[2016-10-19 08:57] VITALS: BP 137/83; PULSE 66; RESP 20; TEMP 98.1
--- NOTE | 2016-10-19 09:49 | US ---
Ultrasound guided FNA requested for 2 subcutaneous fluid collections: CLINICAL HISTORY: Postop fluid collections FINDINGS: The procedure was explained to the patient. The risks, complications, benefits and alternatives were discussed and any questions were answered. Informed consent was obtained. Patient was placed supin e on the ultrasound table and prepped and draped in the usual sterile fashion. Utilizing a 18 gauge needle, passes were made into 2 separate suspected fluid collections. There is no significant aspirat ion of any fluid from either collection. Patient was stable throughout the procedure. Pathology is p ending. All elements of maximal barrier and sterile technique were utilized. IMPRESSION: 1. No significant aspiration of fluid was obtained from either collection which may represent scar. C orrelate clinically.
== END ==
LOC: RADPROMAIN 07:58
PROVIDERS: ATTEND Surgery Plastic and Reconstructive Surgery
DX: R10.12 Left upper quadrant pain (principal)
CPT/HCPCS: 10022; 76942

== ENCOUNTER → 2016-10-19 | Outpatient (CLI) | payer BC ==
[2016-10-19 10:46] VITALS: BP 177/98; PULSE 57; TEMP 98; BMI 48.6
[2016-10-19 11:03] LABS: CH 29.6; CHCM 33.4; HCT 36.8 % (34.0-46.0); HDW 2.85; HGB 12.4 gm/dL (11.4-16.0); MCHC 33.6 g/dL (31.0-37.0); MCV 89.1 fL (80.0-100.0); Mean Platelet Volume 7.4; RBC 4.14 m/uL (3.80-5.40); RDW 13.7 % (11.5-15.5); WBC 5.2 k/uL (3.8-10.6)
[2016-10-19 11:11] LABS: INR 1.1 (<1.1); Prothrombin Time 10.8 sec (9.0-12.0)
[2016-10-19 11:38] LABS: Hemoglobin A1C 7.5 % (4.2-6.1)
[2016-10-19 12:18] LABS: ALT 72 U/L (9-52); AST 53 U/L (14-36); Alkaline Phosphatase 91 U/L (38-126); Anion Gap 11 mmol/L; Blood Urea Nitrogen 11 mg/dL (7-17); Calcium 9.2 mg/dL (8.4-10.2); Carbon Dioxide 27 mmol/L (22-30); Chloride 107 mmol/L (98-107); Cholesterol 133 mg/dL (<200); Glucose 102 mg/dL (74-99); HDL Cholesterol 25 mg/dL (40-60); Iron 69 ug/dL (37-170); Non-African American GFR(MDRD) >60 (>60 ml/min/1.73 sqM); Phosphorous 3.7 mg/dL (2.5-4.5); Potassium 4.7 mmol/L (3.5-5.1); Sodium 145 mmol/L (137-145); Total Bilirubin 0.5 mg/dL (0.2-1.3); Total Protein 6.9 g/dL (6.3-8.2); Triglycerides 131 mg/dL (<150)
[2016-10-19 12:28] LABS: Prealbumin 17 mg/dL (18-36); Total Iron Binding Capacity 314 ug/dL (265-497)
[2016-10-19 13:24] LABS: Vitamin B12 568 pg/mL (239-931)
[2016-10-26 18:28] LABS: Selenium 160 mcg/L (63-160)
--- NOTE | 2016-11-24 22:24 | P.PN ---
Progress Note - Text DATE OF SERVICE: 10/19/2016. CHIEF COMPLAINT: Follow-up gastric bypass. HISTORY OF PRESENT ILLNESS: Cynthia Holbrook is a 46-year-old female status post Yayo-en-Y gastric bypass on 09/28/2016. She is approximately 3 weeks out. She had a complicated postoperative course with abdominal wall hematoma, which required drainage. At this time no reports of fevers or chills or infection. She reports her blood sugars are under well control under 150. She is able to tolerate textured food. Now she presents for further evaluation and management. At her height of 5 feet 4 inches, her ideal body weight is 144 pounds. Her highest weight was 299 pounds. Today she comes in weighing 283 pounds. She has lost 16 pounds in approximately 3 weeks. Percent excess weight loss is 11%. Body mass index is reduced from 51.4 down to 48.6. PHYSICAL EXAM: VITAL SIGNS: 98.0, 57, 177/98 respirations 16; 5 feet 4 inches; 283 pounds. Body mass index of 48.6. GENERAL: Well-developed female in no acute distress. ABDOMEN: Wound granulating. No signs of infection. Abdominal wall seroma of left upper quadrant. No palpable incisional hernia. Protuberant, soft, nontender, nondistended. HEENT: No scleral icterus. Extraocular movements grossly intact. Moist buccal mucosa. NECK: Supple without lymphadenopathy. CHEST: Nonlabored respirations with equal bilateral excursions. CARDIOVASCULAR: Regular rate and regular rhythm. MUSCULOSKELETAL: No clubbing, cyanosis or edema. NEURO: No focal or lateralizing signs. Cranial nerves 2-12 grossly within normal limits. PSYCH: Appropriate affect. Alert and oriented to person, place and time. ASSESSMENT: 1. Morbid obesity due to excess calories. 2. Body mass index reduced from 51.4 down to 48.6. 3. Obstructive sleep apnea. 4. Newly diagnosed [id number] diabetes type 2, stable. 5. Shelton esophagus. 6. Gastroesophageal reflux disease, resolved. 7. Depression without psychosis. 8. Fatty liver disease. 9. Biliary dyskinesia. 10. Family history of gallbladder disease. 11. Elevated AST. 12. Elevated ALT. 13. Vitamin D deficiency. 14. Vitamin A deficiency. 15. Elevated alkaline phosphatase. 16. Uncontrolled hypertension. 17. Personal history of gallbladder disorder. 18. History of abdominal wall hematoma, now resolved. 19. Status post gastric bypass. 20. Dietary surveillance and counseling. 21. Secondary hyperparathyroidism. PLAN: 1. At this time she will continue with close monitoring of her blood sugars. 2. Continue protein intake goal of over 75 grams daily. 3. Recommend follow-up at minimum one month postop with bariatric labs. ADDENDUM: Bariatric metabolic panel was reviewed demonstrating normal white blood cell count. Hemoglobin was normal at 12.4. Glucose was 102. Hemoglobin A1c was improved from 9.7 down to 7.5. AST was elevated at 53. ALT was elevated at 72. Prealbumin was low at 17. Albumin was normal at 4. HDL was 25. Vitamin D low at 34. Vitamin D low at 14.2. Parathyroid hormone elevated at 74.2. Recommend start a multivitamin four weeks postop, and calcium intake of at least 1200 mg, in divided doses daily. Also will need vitamin D supplement as well as vitamin A supplement. Again, goal protein intake of over 75 grams advised.
== END | disposition home or self-care (01) ==
LOC: BARWHC3 10:00
PROVIDERS: ATTEND Surgery Plastic and Reconstructive Surgery
DX: Z48.815 Encounter for surgical aftercare following surgery on the digestive system (principal); E66.01 Morbid (severe) obesity due to excess calories; Z98.84 Bariatric surgery status; E21.1 Secondary hyperparathyroidism, not elsewhere classified; E89.1 Postprocedural hypoinsulinemia; D50.8 Other iron deficiency anemias; E44.0 Moderate protein-calorie malnutrition; E55.9 Vitamin D deficiency, unspecified; K74.1 Hepatic sclerosis; N19 Unspecified kidney failure; K50.90 Crohn's disease, unspecified, without complications
CPT/HCPCS: 80053; 80061; 82306; 82525; 82607; 82728; 82746; 83036; 83540; 83550; 83735; 83970; 84100; 84134; 84255; 84425; 84443; 84590; 84630; 85027; 85610; 85730; 99211

== ENCOUNTER → 2016-11-26 | Outpatient (CLI) | payer BC ==
[2016-11-26 11:21] VITALS: PULSE 72; RESP 14; TEMP 98.4; BMI 46.2
--- NOTE | 2016-11-26 12:07 | P.PN ---
Progress Note - Text To whom it may concern: Cynthia Holbrook is under my general surgery care. She will need another surgical procedure and will have delayed return to work for another 4 weeks. Should you have any further questions, please feel free to contact us. Regards, Ann Pollard MD, FACS
--- NOTE | 2017-01-01 20:46 | P.PN ---
Progress Note - Text DATE OF SERVICE: 11/26/2016 CHIEF COMPLAINT: Follow-up gastric bypass. HISTORY OF PRESENT ILLNESS: Cynthia Holbrook is a 46-year-old female who is status post Yayo-en-Y gastric bypass on 09/28/2016. She is officially 2 months postop. At her height of 5 feet 4 inches, her ideal body weight is 144 pounds. Her highest weight was 299 pounds. Today she comes in 269 pounds. She has lost 30 pounds in two months. Percent excess weight loss is 19%. Since her last visit a month ago she has lost another 14 pounds. Body mass index reduced from 51.4 down to 46.2. She is still 125 pounds overweight. She denies any dysphagia. She does report right upper quadrant abdominal pain. She also reports sore throat in the morning. She has already started on multivitamin. PHYSICAL EXAM: VITAL SIGNS: 98.4, 72, 14, 142/86, 5 foot 4, 269 pounds. Body mass index 46.2. ABDOMEN: All incisions completely granulated. No signs of infection or cellulitis. GENERAL: Well-developed, pleasant female in no acute distress. HEENT: No scleral icterus. Extraocular movements grossly intact. Moist buccal mucosa. NECK: Supple without lymphadenopathy. CHEST: Nonlabored respirations with equal bilateral excursions. CARDIOVASCULAR: Regular rate and regular rhythm. MUSCULOSKELETAL: No clubbing, cyanosis or edema. NEURO: No focal or lateralizing signs. Cranial nerves 2-12 grossly within normal limits. PSYCH: Appropriate affect. Alert and oriented to person, place and time. LABS: Hemoglobin was normal at 12.4. Glucose was elevated at 102. Hemoglobin A1c improved from 9.7 down to 7.5. AST and ALT elevated at 53 and 72, respectively, and improved. Prealbumin was low at 17, HDL low at 25, vitamin A low at 34. Vitamin D low at 14.2. PTH level elevated at 74.2. ASSESSMENT: 1. Morbid obesity due to excess calories. 2. Body mass index reduced from 51.4 to 46.2. 3. Status post Yayo-en-Y gastric bypass. 4. Inadequate protein intake. 5. Elevated AST. 6. Elevated ALT. 7. Vitamin A deficiency. 8. Dyslipidemia. 9. Vitamin D deficiency. 10. Secondary hyperparathyroidism. 11. Right upper quadrant pain. PLAN: 1. Recommend calcium intake 1200 mg in divided doses twice daily. 2. Recommend vitamin D supplement 50,000 units daily. 3. Recommend vitamin A supplement of 8000 units daily. 4. On exam, she did have right upper quadrant discomfort with symptoms and features consistent with gallbladder disease. She has elected for a cholecystectomy. 5. I recommend goal protein intake of over 75 grams daily. 6. Recommend intermediate monitor of her blood sugars, which she states has been under 100 at home.
== END | disposition home or self-care (01) ==
LOC: BARWHC3 10:36
PROVIDERS: ATTEND Surgery Plastic and Reconstructive Surgery
DX: Z02.79 Encounter for issue of other medical certificate (principal); E66.01 Morbid (severe) obesity due to excess calories
CPT/HCPCS: 97803; 99211

== ENCOUNTER 2016-11-30 11:53 | Day surgery (SDC) | payer BC ==
[2016-11-27 09:08] VITALS: BMI 47.5
--- NOTE | 2016-11-30 07:17 | P.GSHP ---
History of Present Illness H&P Date: 11/30/16 CHIEF COMPLAINT: Gallstones. HISTORY OF PRESENT ILLNESS: The patient is a 46 year-old female who reports history of epigastric including right upper quadrant abdominal pain. She presents with right upper quadrant abdominal pain and clinical picture consistent with cholecystitis. PAST MEDICAL HISTORY: Please see list. PAST SURGICAL HISTORY: Please see list. MEDICATIONS: Please see list. ALLERGIES: Please see list. SOCIAL HISTORY: No illicit drug use FAMILY HISTORY: No reports of Crohn disease or ulcerative colitis. REVIEW OF ORGAN SYSTEMS: Constitutional: History of weight loss. No fevers or chills. GI: No reports of gastroesophageal reflux disease. Has fatty food intolerance. Has reported gas bloat. HEENT: Denies any trouble with vision, hearing or nosebleeds. No difficulty swallowing. LYMPHATIC: The patient denies any lumps and bumps around the neck. PHYSICAL EXAM: VITAL SIGNS: Stable GENERAL: Well developed and in no acute distress. Pleasant. HEENT: No sclera icterus. Extraocular movements grossly intact. Moist buccal mucosa. Head is atraumatic, normocephalic. Hears conversational speech. No nasal drainage. NECK: Supple without lymphadenopathy. No JV distention. CHEST: Non-labored respirations and equal bilateral excursions. CARDIOVASCULAR: Regular rate and rhythm. Palpable 2+ radial pulses. ABDOMEN: Soft. Nondistended. Tender right upper quadrant. MUSCULOSKELETAL: No clubbing, cyanosis or edema. NEUROLOGIC: No focal or lateralizing signs. PSYCH: Appropriate affect. Alert and oriented to person, place and time. ASSESSMENT: 1. Symptomatic gallstones. 2. Obesity. 3. Right upper quadrant abdominal pain. PLAN: 1. She has symptomatic cholelithiasis and I have recommended laparoscopic cholecystectomy. 2. DVT prophylaxis. 3. Antibiotics prophylaxis. Past Medical History Past Medical History: Cancer, Diabetes Mellitus, GERD/Reflux, Hypertension Additional Past Medical History / Comment(s): Barrets esophagus, back pain (djd) , had cervical cancer 1990. Irritable bowel History of Any Multi-Drug Resistant Organisms: None Reported Past Surgical History: Appendectomy, Bariatric Surgery, Hysterectomy Additional Past Surgical History / Comment(s): Gastric Bypass 09/28/16 Pt had 12 surgeries for cervical cancer Past Anesthesia/Blood Transfusion Reactions: No Reported Reaction Past Psychological History: Anxiety Smoking Status: Former smoker Past Alcohol Use History: None Reported Additional Past Alcohol Use History / Comment(s): quit smoking 2015, smoked since age of 14-2ppd Past Drug Use History: None Reported - Past Family History Mother Family Medical History: No Reported History Medications and Allergies Home Medications Medication Instructions Recorded Confirmed Type FLUoxetine HCL [PROzac] 20 mg PO DAILY 07/21/16 11/27/16 History Ergocalciferol (Vitamin D2) 1.25 mg PO DAILY 11/27/16 11/27/16 History [Vitamin D2] Allergies Allergy/AdvReac Type Severity Reaction Status Date / Time ibuprofen [From Motrin] AdvReac Abdominal Verified 11/27/16 08:53 Pain
[~2016-11-30 11:53] MED LIST changes: -FAMOTIDINE 20 MG/2 ML VIAL IV PRN; +LACTATED RINGERS 1,000 ML IV SCH; +LIDOCAINE 1% 20 ML VIAL (10MG/ML) FOR IV START INTRADERMA PRN; -MIDAZOLAM 2 MG/2 ML VIAL IV PRN
[2016-11-30] MEDS ORDERED: PROPOFOL 10 MG/ML 20 ML VIAL IV ONE (13:26)
[2016-11-30] MEDS ORDERED: NEOSTIGMINE 1 MG/ML 10 ML VIAL ONE (13:26)
[2016-11-30] MEDS ORDERED: MIDAZOLAM 2 MG/2 ML VIAL ONE (13:26)
[2016-11-30] MEDS ORDERED: fentaNYL (PF) 50 MCG/ML 2 ML AMP ONE (13:26)
[2016-11-30] MEDS ORDERED: HEPARIN SODIUM,PORCINE 5,000 UNIT/ML 1 ML VIAL ONE (13:26)
[2016-11-30] MEDS ORDERED: ROCURONIUM BROMIDE 10 MG/ML 10 ML VIAL IV ONE (13:26)
[2016-11-30] MEDS ORDERED: SUCCINYLCHOLINE CHLORIDE VIAL 200 MG/10 ML VIAL IV ONE (13:26)
[2016-11-30] MEDS ORDERED: LIDOCAINE 1% INJ 10MG/ML (20 ML MDV) ONE (13:26)
[2016-11-30] MEDS ORDERED: GLYCOPYRROLATE 0.2 MG/ML 2 ML VIAL ONE (13:26)
[2016-11-30] MEDS ORDERED: BUPIVACAIN-EPI 0.25%-1:200,000 30 ML VIAL SQ ONE (13:48)
[2016-11-30] MEDS ORDERED: LACTATED RINGERS 1,000 ML IV ONE ×2 (14:29)
--- NOTE | 2016-11-30 14:45 | P.OP ---
Date of Procedure: 11/30/16 Description of Procedure: SURGEON: ANN POLLARD MD COTTON WASHER: None. PREOPERATIVE DIAGNOSES: 1. Chronic Cholecystitis. 2. Morbid obesity, BMI 47.5 3. Diabetes type 2, controlled. 4. Obstructive sleep apnea. 5. Hypertensive heart disease without congestive heart failure. 6. Right upper quadrant abdominal pain. POSTOPERATIVE DIAGNOSES: 1. Chronic Cholecystitis. 2. Morbid obesity, BMI 47.5 3. Diabetes type 2, controlled. 4. Obstructive sleep apnea. 5. Hypertensive heart disease without congestive heart failure. 6. Right upper quadrant abdominal pain. OPERATION: Laparoscopic cholecystectomy ANESTHESIA: General with 30 mL 0.25% Marcaine with epinephrine. ESTIMATED BLOOD LOSS: 10 mL. SPECIMENS REMOVED: Gallbladder. COMPLICATIONS: None. INDICATIONS: The patient is a 46-year-old female who presents with chronic cholelcystitis. Surgical intervention with a laparoscopic cholecystectomy was described at length including injury to the biliary tree, bleeding, infection, need for further surgery. Informed consent was obtained. DESCRIPTION OF THE PROCEDURE: The patient was brought to the operating room, laid in supine position. After general induction, the abdomen was prepped and draped in a standard sterile fashion. Prior to incision, a timeout protocol was confirmed with surgical team regarding patient's name, procedure to be performed including preoperative medications for which she had received heparin 5000 units subcutaneously as well as bilateral SCDs for DVT prophylaxis. A transverse 5 mm incision was made above the umbilicus and off to the right of the midline. Please note the skin was localized prior to incision. A 0 degree 5-mm laparoscopic trocar entry was performed and entered into the peritoneal cavity. Diagnostic laparoscopy confirmed no injury to bowel, viscera or mesentery. Mild abdominal adhesions were identified along the epigastrium and left upper quadrant however undisturbed. The liver serosa was completely unremarkable. Next, two 5 mm trocars were placed along the right costal margin followed by a 11 mm port at the left upper quadrant. The patient was placed in steep reverse Trendelenburg position with the right side up. The gallbladder fundus was retracted over the dome of the liver. Initial attention was brought to the infundibulum which was gently retracted in the inferior lateral approach. Using a Kittner, the cystic duct including the cystic artery was carefully skeletonized. Using a large clip critical care rn 2 clips were placed proximally, and 2 clip was placed distally along the cystic duct and then cut. Again care was taken to avoid any injury to the biliary tree as the common bile duct was clearly visualized during this portion of dissection. Next, the cystic artery was clipped twice proximally, once distally and then cauterized using Sonicision. Electro-Bovie cautery was used to remove the gallbladder from the hepatic fossa without decompression of the gallbladder. Hemostasis was checked and found to be adequate. The gallbladder was removed from the abdominal cavity using an Endo Catch bag and passed off for further pathological analysis. All instruments and pneumoperitoneum were removed from the abdominal cavity. The fascial defect was less than 8 mm for the 11-mm port site. The rest of incisions were reapproximated using 4-0 Monocryl in an interrupted subcuticular fashion. A total of 30 mL of 0.25% Marcaine with epinephrine was infiltrated to all wounds for postop analgesia. Dermabond was applied to the skin. At the end of the procedure, needle, sponge, and instrument count was verified correct by electrical mechanical technician. The patient had tolerated the procedure well and was taken to postanesthesia care unit in stable condition. Intraoperative films were discussed and reviewed with the patient's family who were pleased with the level of care. FINDINGS: 1. Chronic cholecystitis. Plan - Discharge Summary New Discharge Prescriptions: HYDROcodone/APAP 7.5-325MG [Eloy 7.5-325] 1 tab PO Q6HR PRN #60 tab PRN Reason: Pain Discharge Medication List FLUoxetine HCL [PROzac] 20 mg PO DAILY 07/21/16 [History] Omeprazole 40 mg PO DAILY #90 capsule. 09/29/16 [Rx] Calcium Carbonate [Calcium] 600 mg PO BID #60 tablet 11/26/16 [Rx] Loratadine-Pseudoeph 5-120 mg [Claritin-D 12 HR] 1 each PO Q12HR #30 tab [Rx] Vitamin A 8,000 unit PO DAILY #30 capsule 11/26/16 [Rx] Ergocalciferol (Vitamin D2) [Vitamin D2] 1.25 mg PO DAILY 11/27/16 [History] HYDROcodone/APAP 7.5-325MG [Eloy 7.5-325] 1 tab PO Q6HR PRN #60 tab 11/30/16 [ Rx] Follow up Appointment(s)/Referral(s): Ann Pollard MD [STAFF PHYSICIAN] - 12/16/16 Patient Instructions/Handouts: Laparoscopic Cholecystectomy (DC) Activity/Diet/Wound Care/Special Instructions: Low-fat foods. No lifting over 4 pounds in 2 weeks. Discharge Disposition: HOME SELF-CARE
[2016-11-30 14:52] VITALS: TEMP 98.2
[2016-11-30] MEDS: HYDROmorphone 1 MG/ML 1 ML SYRINGE IVP PRN ×4 (14:56→15:25)
[2016-11-30] MEDS ORDERED: ONDANSETRON 4 MG/2 ML VIAL IVP ONE (15:08)
[2016-11-30] MEDS ORDERED: DEXAMETHASONE SOD PHOSPHATE 10 MG/ML 1 ML VIAL IV STA (15:58)
[2016-11-30] MEDS ORDERED: HYDROcodone/APAP 7.5-325MG 1 EACH TAB PO ONE (16:05)
[2016-11-30 16:21] VITALS: BP 148/83; PULSE 79; RESP 16
== END 2016-11-30 16:37 | disposition home or self-care (01) ==
LOC: OR 11:53
PROVIDERS: ATTEND Surgery Plastic and Reconstructive Surgery
DX: K81.1 Chronic cholecystitis (principal); E11.9 Type 2 diabetes mellitus without complications; I11.9 Hypertensive heart disease without heart failure; E66.01 Morbid (severe) obesity due to excess calories; G47.33 Obstructive sleep apnea (adult) (pediatric); K21.9 Gastro-esophageal reflux disease without esophagitis; Z68.42 Body mass index [BMI] 45.0-49.9, adult; Z87.891 Personal history of nicotine dependence; Z98.84 Bariatric surgery status; Z85.41 Personal history of malignant neoplasm of cervix uteri; Z79.1 Long term (current) use of non-steroidal anti-inflammatories (NSAID); Z79.899 Other long term (current) drug therapy
CPT/HCPCS: 88304; 47562; J2250; J0330; J1644; J1100; J2710; J0690; J2405; J2001; J3010; J1170; J2704

== ENCOUNTER → 2016-12-16 | Outpatient (CLI) | payer BC ==
[2016-12-16 13:12] VITALS: BP 166/98; PULSE 73; RESP 16; TEMP 98.3; BMI 45.0
--- NOTE | 2016-12-16 13:51 | P.PN ---
Progress Note - Text To whom it may concern: Cynthia Holbrook is under my general surgery care. She may return to work without restrictions on Wednesday December 21, 2016. Regards, Ann Pollard MD, FACS
[2016-12-16 14:39] LABS: CH 29.1; CHCM 32.7; HCT 46.5 % (34.0-46.0); HDW 2.56; HGB 14.8 gm/dL (11.4-16.0); MCH 28.5 pg (25.0-35.0); MCHC 31.9 g/dL (31.0-37.0); MCV 89.2 fL (80.0-100.0); Mean Platelet Volume 6.3; RBC 5.21 m/uL (3.80-5.40); RDW 12.9 % (11.5-15.5); WBC 7.9 k/uL (3.8-10.6)
[2016-12-16 14:47] LABS: INR 1.1 (<1.1); Prothrombin Time 11.1 sec (9.0-12.0)
[2016-12-16 14:48] LABS: ALT 84 U/L (9-52); AST 49 U/L (14-36); Alkaline Phosphatase 101 U/L (38-126); Anion Gap 10 mmol/L; Blood Urea Nitrogen 9 mg/dL (7-17); Calcium 9.8 mg/dL (8.4-10.2); Carbon Dioxide 29 mmol/L (22-30); Chloride 103 mmol/L (98-107); Cholesterol 140 mg/dL (<200); Glucose 95 mg/dL (74-99); HDL Cholesterol 34 mg/dL (40-60); Iron 89 ug/dL (37-170); Magnesium 1.9 mg/dL (1.6-2.3); Non-African American GFR(MDRD) >60 (>60 ml/min/1.73 sqM); Phosphorous 4.1 mg/dL (2.5-4.5); Sodium 142 mmol/L (137-145); Total Bilirubin 0.7 mg/dL (0.2-1.3); Total Protein 7.4 g/dL (6.3-8.2); Triglycerides 94 mg/dL (<150)
[2016-12-16 15:00] LABS: Prealbumin 17 mg/dL (18-36); Total Iron Binding Capacity 328 ug/dL (265-497)
[2016-12-16 15:15] LABS: Hemoglobin A1C 5.2 % (4.2-6.1)
[2016-12-16 15:54] LABS: Vitamin B12 651 pg/mL (239-931)
[2016-12-19 10:50] LABS: Selenium 136 mcg/L (63-160)
--- NOTE | 2017-02-07 10:11 | PN ---
DATE OF SERVICE: 12/16/2016 CHIEF COMPLAINT: Follow-up cholecystectomy. HISTORY OF PRESENT ILLNESS: Cynthia Holbrook is a 46-year-old female who is status post cholecystectomy on 11/30/2016. Initially she had Yayo-en-Y gastric bypass done on 09/28/2016. She reports she is doing quite well. Right upper quadrant abdominal pain is now resolved. She reports intermittent dysphagia with water; however, it is worse at night. Denies any troubles in the morning. Her blood sugars are now improved as her blood sugars are between 70 to 80. Her diabetes is also resolved. She reports feeling great. She is maintaining approximately over 70 grams of protein. Her initial weight was 299 pounds for her 5 foot 4 frame. Her ideal body weight is 144 pounds. Today she comes in weighing 262 pounds. She has lost 37 pounds in approximately 2 months. Percent excess weight loss is 24%. Body mass index is reduced from 51.4 down to 45. PHYSICAL EXAM: VITAL SIGNS: 98.3, 73, 16, 166/98; 5 foot 4, 262 pounds. Body mass index of 45. ABDOMEN: All wounds well granulated. No signs of infection. GENERAL: Well-developed, pleasant female in no acute distress. HEENT: No scleral icterus. Extraocular movements grossly intact. Moist buccal mucosa. NECK: Supple without lymphadenopathy. CHEST: Nonlabored respirations with equal bilateral excursions. CARDIOVASCULAR: Regular rate and regular rhythm. MUSCULOSKELETAL: No clubbing, cyanosis or edema. NEURO: No focal or lateralizing signs. Cranial nerves 2-12 grossly within normal limits. PSYCH: Appropriate affect. Alert and oriented to person, place and time. PATHOLOGY: Gallbladder consistent without cholecystitis. ASSESSMENT: 1. History of symptomatic cholecystitis. 2. Morbid obesity. 3. Body mass index is reduced from 51.4 down to 45. 4. Diabetes type 2, resolved. 5. Hypertension, improved. PLAN: 1. Clinically she is doing well, may return to work at stated time. 2. She will intermittently check her blood sugar glucose. 3. [place] follow-up is 3 months postop; otherwise for March 2017. [facility]
== END | disposition home or self-care (01) ==
LOC: BARWHC3 12:21
PROVIDERS: ATTEND Surgery Plastic and Reconstructive Surgery
DX: Z48.815 Encounter for surgical aftercare following surgery on the digestive system (principal); E66.01 Morbid (severe) obesity due to excess calories; E21.1 Secondary hyperparathyroidism, not elsewhere classified; E89.1 Postprocedural hypoinsulinemia; D50.8 Other iron deficiency anemias; E55.9 Vitamin D deficiency, unspecified; N19 Unspecified kidney failure; K50.90 Crohn's disease, unspecified, without complications; K90.89 Other intestinal malabsorption; K76.9 Liver disease, unspecified; Z98.84 Bariatric surgery status
CPT/HCPCS: 36415; 80053; 80061; 82306; 82525; 82607; 82728; 82746; 83036; 83540; 83550; 83735; 83970; 84100; 84134; 84255; 84425; 84443; 84590; 84630; 85027; 85610; 85730; 99211

== ENCOUNTER 2023-11-30 05:57 | Inpatient (IN) | payer BC ==
[2023-11-30] MEDS: ADENOSINE 3 MG/ML 2 ML VIAL IVP STA ×3 (06:26→06:38)
[2023-11-30] MEDS: SODIUM CHLORIDE 0.9% 1,000 ML IV STA (06:41)
--- NOTE | 2023-11-30 06:45 | ED ---
Arrhythmia/Palpitations HPI - General Chief Complaint: Chest Pain Stated Complaint: chest pain dizzy Time Seen by Provider: 11/30/23 06:19 Source: patient, RN notes reviewed, old records reviewed Mode of arrival: wheelchair Limitations: no limitations - History of Present Illness Initial Comments: This is a 53-year-old female to the ER for evaluation today. Patient presents today for evaluation regards to significantly elevated heart rate nausea palp itations near syncopal events. Patient symptoms woke her up from sleep today. And symptoms are severe in nature patient is diaphoretic short of breath and feels like she could pass out. Initial EKG SVT 242 QRS 176 QTc 274 MD Complaint: rapid heart beat, "heart racing", "skipped beats", palpitations, irregular heart beat, atrial fibrillation -: days(s) Context: occurred during rest, occurred during exertion Arrhythmia History: atrial fibrillation, SVT, on anti-coagulants Associated Symptoms: chest pain, near-syncope, anxiety, diaphoresis, feeling of impending doom Treatments Prior to Arrival: other (0) - Related Data Home Medications Medication Instructions Recorded Confirmed Cyclobenzaprine [Flexeril] 10 mg PO TID PRN 11/30/23 11/30/23 DULoxetine HCL [Cymbalta] 60 mg PO DAILY 11/30/23 11/30/23 HYDROcodone/APAP 10-325MG [[place] 1 tab PO Q4HR PRN 11/30/23 11/30/23 10-325] Multivitamins, Thera [Multivitamin 1 tab PO DAILY 11/30/23 11/30/23 (formulary)] Rosuvastatin Calcium 5 mg PO DAILY 11/30/23 11/30/23 Tirzepatide [Mounjaro] 2.5 mg SQ MO 11/30/23 11/30/23 Valsartan/Hydrochlorothiazide 1 tab PO DAILY 11/30/23 11/30/23 [Valsartan-Hctz 320-25 mg Tab] Previous Rx's Medication Instructions Recorded Omeprazole 40 mg PO DAILY #90 capsule. 09/29/16 Metoprolol Succinate (ER) [Toprol 25 mg PO DAILY #90 tab 12/01/23 XL] Allergies Allergy/AdvReac Type Severity Reaction Status Date / Time ibuprofen [From Motrin] AdvReac Abdominal Verified 11/30/23 07:30 Pain Review of Systems ROS Statement: Those systems with pertinent positive or pertinent negative responses have been documented in the HPI. ROS Other: All systems not noted in ROS Statement are negative. Past Medical History Past Medical History: Cancer, Diabetes Mellitus, GERD/Reflux, Hypertension Additional Past Medical History / Comment(s): Barrets esophagus, back pain (djd), had cervical cancer 1990. Irritable bowel History of Any Multi-Drug Resistant Organisms: None Reported Past Surgical History: Appendectomy, Bariatric Surgery, Hysterectomy Additional Past Surgical History / Comment(s): Gastric Bypass 09/28/16 Pt had 12 surgeries for cervical cancer Past Anesthesia/Blood Transfusion Reactions: No Reported Reaction Past Psychological History: Anxiety Smoking Status: Vaper Past Alcohol Use History: None Reported Past Drug Use History: None Reported - Past Family History Mother Family Medical History: No Reported History General Exam Limitations: altered mental status General appearance: anxious, in distress Head exam: Present: atraumatic, normocephalic, normal inspection Eye exam: Present: normal appearance, PERRL, EOMI. Absent: scleral icterus, conjunctival injection, periorbital swelling ENT exam: Present: normal exam, mucous membranes moist Neck exam: Present: normal inspection. Absent: tenderness, meningismus, lymphadenopathy Respiratory exam: Present: normal lung sounds bilaterally. Absent: respiratory distress, wheezes, rales, rhonchi, stridor Cardiovascular Exam: Present: tachycardia, irregular rhythm, normal heart sounds. Absent: systolic murmur, diastolic murmur, rubs, gallop, clicks GI/Abdominal exam: Present: soft, normal bowel sounds. Absent: distended, ten derness, guarding, rebound, rigid Extremities exam: Present: normal inspection, full ROM, normal capillary refill. Absent: tenderness, pedal edema, joint swelling, calf tenderness Back exam: Present: normal inspection Neurological exam: Present: alert, oriented X3, CN II-XII intact Psychiatric exam: Present: normal affect, normal mood Skin exam: Present: warm, dry, intact, normal color. Absent: rash Course Vital Signs 11/30/23 11/30/23 11/30/23 06:06 06:18 06:20 Temperature 98.7 F Pulse Rate 44 L 242 H Pulse Rate [ 241 H Fishing Instructor ] Respiratory 26 H Rate Blood Pressure 141/61 O2 Sat by Pulse 95 Oximetry 11/30/23 11/30/23 11/30/23 06:30 06:35 06:38 Temperature Pulse Rate 240 H 240 H 115 H Pulse Rate [ Fishing Instructor ] Respiratory 26 H Rate Blood Pressure 111/99 O2 Sat by Pulse 100 Oximetry 11/30/23 11/30/23 11/30/23 06:51 09:18 12:00 Temperature Pulse Rate 99 75 71 Pulse Rate [ Fishing Instructor ] Respiratory 24 20 18 Rate Blood Pressure 104/86 126/89 127/97 O2 Sat by Pulse 99 97 98 Oximetry 11/30/23 11/30/23 12/01/23 16:00 20:00 01:30 Temperature Pulse Rate 65 66 70 Pulse Rate [ Fishing Instructor ] Respiratory 19 18 20 Rate Blood Pressure 122/89 139/87 115/82 O2 Sat by Pulse 97 98 94 L Oximetry 12/01/23 12/01/23 12/01/23 03:19 07:03 09:21 Temperature Pulse Rate 85 66 Pulse Rate [ Fishing Instructor ] Respiratory 18 18 Rate Blood Pressure 116/74 120/97 O2 Sat by Pulse 94 L 98 94 L Oximetry 12/01/23 11:38 Temperature 98.9 F Pulse Rate 80 Pulse Rate [ Fishing Instructor ] Respiratory 20 Rate Blood Pressure 122/99 O2 Sat by Pulse Oximetry - Reevaluation(s) Reevaluation #1: 11/30/23 06:42 Echo records reviewed Reevaluation #2: 11/30/23 06:44 Patient informed of results questions answered Reevaluation #3: 11/30/23 06:44 Patient is significantly difficult to convert SVT with concerns for hypotension and need for cardioversion, patient was able to convert after bolus of IV fluid restore blood pressure and third treatment of adenosine Patient symptoms are dramatically improved here in the ER with difficult to convert SVT Reevaluation #4: Was pt. sent in by a medical professional or institution (, PA, DOCK BOSS, urgent care, hospital, or senior care...) When possible be specific @ -no Did you speak to anyone other than the patient for history (EMS, parent, family, police, friend...)? What history was obtained from this source @ -no Did you review nursing and triage notes (agree or disagree)? Why? @ -agree Are old charts reviewed (outside hosp., previous admission, EMS record, old EKG, old radiological studies, urgent care reports/EKG's, senior care records)? Report findings @ -yes Differential Diagnosis (chest pain, altered mental status, abdominal pain women, abdominal pain men, vaginal bleeding, weakness, fever, dyspnea, syncope, headache, dizziness, GI bleed, back pain, seizure, CVA, palpatations, mental health, musculoskeletal)? @ -prior EKG interpreted by me (3pts min.). @ -yes X-rays interpreted by me (1pt min.). @ -no CT interpreted by me (1pt min.). @ -no U/S interpreted by me (1pt. min.). @ -no What testing was considered but not performed or refused? (CT, X-rays, U/S, labs)? Why? @ -none What meds were considered but not given or refused? Why? @ -none Did you discuss the management of the patient with other professionals (professionals i.e. , PA, DOCK BOSS, lab, RT, psych nurse, elementary school social worker, wide load escort, teacher, associate loan officer, dependency case manager)? Give summary @ -no Was smoking cessation discussed for >3mins.? @ -no Was critical care preformed (if so, how long)? @ -yes31 Were there social determinants of health that impacted care today? How? (Homelessness, low income, unemployed, alcoholism, drug addiction, transportation, low edu. Level, literacy, decrease access to med. care, alf, rehab)? @ -none Was there de-escalation of care discussed even if they declined (Discuss DNR or withdrawal of care, Hospice)? DNR status @ -no What co-morbidities impacted this encounter? (DM, HTN, Smoking, COPD, CAD, Cancer, CVA, ARF, Chemo, Hep., AIDS, mental health diagnosis, sleep apnea, morbid obesity)? @ -none Was patient admitted / discharged? Hospital course, mention meds given and route, prescriptions, significant lab abnormalities, going to OR and other pertinent info. @ - 53 female to ER for evaluation of palpitations and arrhythmia near syncope. Patient has significant SVT persistent despite 3 treatments of adenosine, patient did cardiovert on third treatment 12 mg adenosine Admitted Undiagnosed new problem with uncertain prognosis? @ -no Drug Therapy requiring intensive monitoring for toxicity (Heparin, Nitro, Insulin, Cardizem)? @ -no Were any procedures done? @ -no Diagnosis/symptom? @ -SVT Acute, or Chronic, or Acute on Chronic? @ -Acute Uncomplicated (without systemic symptoms) or Complicated (systemic symptoms)? @ -Complicated Side effects of treatment? @ -no Exacerbation, Progression, or Severe Exacerbation? @ -exacerbation Poses a threat to life or bodily function? How? (Chest pain, USA, SC, pneumonia, PE, COPD, DKA, ARF, appy, cholecystitis, CVA, Diverticulitis, Homicidal, Suicidal, threat to staff... and all critical care pts) @ -yes Reevaluation #5: 11/30/23 06:44 Differential Palpitations Ventricular arrhythmias, atrial arrhythmias, myocardial infarction, anemia, thyrotoxicosis, electrolyte imbalance, hypokalemia, pulmonary embolism, pulmonary disease, drugs, alcohol, anxiety, stress.... This is not meant to be an all-inclusive list. - Consultations Consultation #1: Spoke with Dr. Reina who agrees to admit this patient EKG Findings - EKG Comments: EKG Findings:: EKG is sinus tachycardia 114 PA 155 QRS 82 QTc 389 - EKG Results: EKG: interpreted by ERMD - Dysrhythmias: Ventricular dysrhythmias: sustained ventricular tachycardia (Initial EKG shows significant SVT) Medical Decision Making - Medical Decision Making 53 female to ER for evaluation of palpitations and arrhythmia near syncope. Patient has significant SVT persistent despite 3 treatments of adenosine, patient did cardiovert on third treatment 12 mg adenosine - Lab Data Result diagrams: 12/01/23 08:01 12/01/23 08:01 Lab Results 11/30/23 11/30/23 11/30/23 Range/Units 06:27 06:27 06:27 WBC 17.7 H (3.8-10.6) k/uL RBC 5.78 H (3.80-5.40) m/uL Hgb 17.2 H (11.4-16.0) gm/dL Hct 51.4 H (34.0-46.0) % MCV 88.9 (80.0-100.0) fL MCH 29.7 (25.0-35.0) pg MCHC 33.4 (31.0-37.0) g/dL RDW 13.4 (11.5-15.5) % Plt Count 643 H (150-450) k/uL MPV 7.6 Neutrophils % 55 % Lymphocytes % 33 % Monocytes % 7 % Eosinophils % 1 % Basophils % 1 % Neutrophils # 9.8 H (1.3-7.7) k/uL Lymphocytes # 5.9 H (1.0-4.8) k/uL Monocytes # 1.2 H (0-1.0) k/uL Eosinophils # 0.2 (0-0.7) k/uL Basophils # 0.2 (0-0.2) k/uL Manual Slide Review Performed PT 10.7 (10.0-12.5) sec INR 1.0 (<1.2) APTT 24.3 (22.0-30.0) sec D-Dimer 0.28 (<0.60) mg/L FEU Sodium 140 (137-145) mmol/L Potassium 4.3 (3.5-5.1) mmol/L Chloride 104 (98-107) mmol/L Carbon Dioxide 18 L (22-30) mmol/L Anion Gap 18 mmol/L BUN 13 (7-17) mg/dL Creatinine 0.81 (0.52-1.04) mg/dL Est GFR (CKD-EPI)AfAm >90 (>60 ml/min/1.73 sqM) Est GFR (CKD-EPI)NonAf 85 (>60 ml/min/1.73 sqM) Glucose 279 H (74-99) mg/dL Calcium 9.4 (8.4-10.2) mg/dL Magnesium 1.9 (1.6-2.3) mg/dL Total Bilirubin 1.0 (0.2-1.3) mg/dL AST 59 H (14-36) U/L ALT 56 H (4-34) U/L Alkaline Phosphatase 93 (38-126) U/L Troponin I (0.000-0.034) ng/mL NT-Pro-B Natriuret Pep 232 pg/mL Total Protein 6.9 (6.3-8.2) g/dL Albumin 4.3 (3.5-5.0) g/dL Lipase 126 (23-300) U/L TSH 3.600 (0.465-4.680) mIU/L 11/30/23 Range/Units 06:27 WBC (3.8-10.6) k/uL RBC (3.80-5.40) m/uL Hgb (11.4-16.0) gm/dL Hct (34.0-46.0) % MCV (80.0-100.0) fL MCH (25.0-35.0) pg MCHC (31.0-37.0) g/dL RDW (11.5-15.5) % Plt Count (150-450) k/uL MPV Neutrophils % % Lymphocytes % % Monocytes % % Eosinophils % % Basophils % % Neutrophils # (1.3-7.7) k/uL Lymphocytes # (1.0-4.8) k/uL Monocytes # (0-1.0) k/uL Eosinophils # (0-0.7) k/uL Basophils # (0-0.2) k/uL Manual Slide Review PT (10.0-12.5) sec INR (<1.2) APTT (22.0-30.0) sec D-Dimer (<0.60) mg/L FEU Sodium (137-145) mmol/L Potassium (3.5-5.1) mmol/L Chloride (98-107) mmol/L Carbon Dioxide (22-30) mmol/L Anion Gap mmol/L BUN (7-17) mg/dL Creatinine (0.52-1.04) mg/dL Est GFR (CKD-EPI)AfAm (>60 ml/min/1.73 sqM) Est GFR (CKD-EPI)NonAf (>60 ml/min/1.73 sqM) Glucose (74-99) mg/dL Calcium (8.4-10.2) mg/dL Magnesium (1.6-2.3) mg/dL Total Bilirubin (0.2-1.3) mg/dL AST (14-36) U/L ALT (4-34) U/L Alkaline Phosphatase (38-126) U/L Troponin I 0.048 H* (0.000-0.034) ng/mL NT-Pro-B Natriuret Pep pg/mL Total Protein (6.3-8.2) g/dL Albumin (3.5-5.0) g/dL Lipase (23-300) U/L TSH (0.465-4.680) mIU/L Critical Care Time Critical Care Time: Yes Total Critical Care Time: 31 Disposition Clinical Impression: Chest pain, SVT (supraventricular tachycardia) Disposition: ADMITTED IP TO THIS [facility] Condition: Serious Is patient prescribed a controlled substance at d/c from ED?: No Time of Disposition: 07:00
[2023-11-30] MEDS: MIDAZOLAM 1 MG/ML 5 ML VIAL IV STA (06:48)
[2023-11-30] MEDS ORDERED: NALOXONE 0.4 MG/ML 1 ML VIAL IV PRN (06:49)
[2023-11-30 07:19] LABS: ALT 56 U/L (4-34); AST 59 U/L (14-36); African American GFR (CKD) >90 (>60 ml/min/1.73 sqM); Albumin 4.3 g/dL (3.5-5.0); Alkaline Phosphatase 93 U/L (38-126); Anion Gap 18 mmol/L; Blood Urea Nitrogen 13 mg/dL (7-17); Calcium 9.4 mg/dL (8.4-10.2); Carbon Dioxide 18 mmol/L (22-30); Chloride 104 mmol/L (98-107); Glucose 279 mg/dL (74-99); Lipase 126 U/L (23-300); Magnesium 1.9 mg/dL (1.6-2.3); Non-African American GFR(CKD) 85 (>60 ml/min/1.73 sqM); Potassium 4.3 mmol/L (3.5-5.1); Sodium 140 mmol/L (137-145); Total Protein 6.9 g/dL (6.3-8.2)
[2023-11-30 07:29] LABS: NT-Pro-B-Type Natriuretic Pept 232 pg/mL
[2023-11-30 07:39] LABS: Partial Thromboplastin Time 24.3 sec (22.0-30.0); Prothrombin Time 10.7 sec (10.0-12.5)
[2023-11-30 07:54] LABS: Basophils # (A) 0.2 k/uL (0-0.2); Basophils % (A) 1 %; Eosinophils # (A) 0.2 k/uL (0-0.7); Eosinophils % (A) 1 %; HCT 51.4 % (34.0-46.0); HGB 17.2 gm/dL (11.4-16.0); Lymphocytes # (A) 5.9 k/uL (1.0-4.8); Lymphocytes % (A) 33 %; MCH 29.7 pg (25.0-35.0); MCHC 33.4 g/dL (31.0-37.0); MCV 88.9 fL (80.0-100.0); Mean Platelet Volume 7.6; Monocytes # (A) 1.2 k/uL (0-1.0); Monocytes % (A) 7 %; Neutrophils # (A) 9.8 k/uL (1.3-7.7); Neutrophils % (A) 55 %; Platelet Count 643 k/uL (150-450); RBC 5.78 m/uL (3.80-5.40); RDW 13.4 % (11.5-15.5); WBC 17.7 k/uL (3.8-10.6)
--- NOTE | 2023-11-30 08:24 | XR ---
EXAMINATION TYPE: XR chest 1V portable DATE OF EXAM: 11/30/2023 6:56 AM CLINICAL INDICATION:Female, 53 years old with history of chest pain; COMPARISON: Chest radiographs from 03/19/2014 TECHNIQUE: XR chest 1V portable Frontal view of the chest. FINDINGS: Lungs/Pleura: There is no evidence of pleural effusion, focal consolidation, or pneumothorax. Pulmonary vascularity: Unremarkable. Heart/mediastinum: Cardiomediastinal silhouette is unremarkable. Musculoskeletal: No acute osseous pathology. IMPRESSION: No acute cardiopulmonary disease/process.
[2023-11-30] MEDS: SODIUM CHLORIDE 0.9% 1,000 ML IV SCH (09:16)
[2023-11-30] MEDS: METOPROLOL SUCCINATE (ER) 25 MG TAB.ER.24H PO SCH (09:18)
--- NOTE | 2023-11-30 10:11 | P.CRDCN ---
History of Present Illness History of present illness: HISTORY OF PRESENT ILLNESS: This is a 53-year-old female with a past medical history significant for hypertension, hyperlipidemia, diabetes, obstructive sleep apnea, and nicotine dependence in the form of vaping. Patient does not follow with a flavoring maker. We have been asked to see the patient in consultation for SVT. Patient examined at the bedside. Patient states that she woke up this morning around 3 AM and was feeling dizzy and lightheaded. She reports having palpitations. She states that she felt like an elephant was sitting on her chest. She also reports tingling of her extremities. She states that she went to work and her symptoms persisted and she was brought to the emergency room for further evaluation. The patient denies any loss of consciousness. She denies any previous cardiac history. Patient was found to be in SVT. She did receive adenosine 3 times wi th conversion to sinus mechanism. She is maintaining sinus mechanism this morning. At the time of examination, she denies chest pain or pressure. She denies shortness of breath. She does report a history of obstructive sleep apnea but states she no longer uses a CPAP as she has lost some weight and believes she is sleeping better. DIAGNOSTICS: - EKG reveals SVT - Chest xray negative for acute process - Laboratory data: WBC 17.7. Hemoglobin 17.2. Platelet count 643. Sodium 140. Potassium 4.3. BUN 13. Creatinine 0.81. AST 59. ALT 56. Troponin 0.048. TSH 3.600. - Current home cardiac medications include valsartanhydrochlorothiazide 320-25 mg daily, propranolol 80 mg daily. REVIEW OF SYSTEMS: At the time of my exam: CONSTITUTIONAL: Denies fever or chills. HEENT: Denies blurred vision, vision changes, or eye pain. Denies hemoptysis CARDIOVASCULAR: Denies chest pain. Denies orthopnea. Denies PND. Denies palpitations RESPIRATORY: Denies shortness of breath. GASTROINTESTINAL: Denies abdominal pain. Denies nausea or vomiting. HEMATOLOGIC: Denies bleeding disorders. GENITOURINARY: Denies any blood in urine. SKIN: Denies pruitis. Denies rash. PHYSICAL EXAM: VITAL SIGNS: Reviewed. GENERAL: Well-developed in no acute distress. HEENT: Head is normocephalic. Pupils are equal, round. Sclerae anicteric. Mucous membranes of the mouth are moist. Neck supple. No JVD or thyromegaly LUNGS: Respirations even and unlabored. Lungs essentially clear to auscultation bilaterally. HEART: Regular rate and rhythm. S1 and S2 heard. ABDOMEN: Soft. Nondistended. Nontender. EXTREMITIES: Normal range of motion. No clubbing or cyanosis. Peripheral pulses intact. No lower extremity edema NEUROLOGIC: Awake and alert. Oriented x 3. ASSESSMENT: SVT, likely AVNRT Obstructive sleep apnea, not utilizing CPAP machine on an outpatient basis Hypertension Hyperlipidemia Diabetes Nicotine dependence in the form of vaping Morbid obesity: BMI 47.2 PLAN: Obtain 2D echo to assess cardiac structure and function Resume home cardiac medications Begin metoprolol tartrate 25 mg daily Recommend repeat outpatient sleep study to determine if patient continues to require CPAP at night (currently not wearing as she thinks she is okay without it due to weight loss) Recommend outpatient ischemic workup Recommend eventual SVT ablation Smoking cessation encouraged Continue to monitor patient for an additional 24 hours Further recommendations pending patient course Nurse practitioner note has been reviewed by physician. Signing provider agrees with the documented findings, assessment, and plan of care documented by STAMPING MACHINE OPERATOR as a scribe. Past Medical History Past Medical History: Cancer, Diabetes Mellitus, GERD/Reflux, Hypertension Additional Past Medical History / Comment(s): Barrets esophagus, back pain (djd), had cervical cancer 1990. Irritable bowel History of Any Multi-Drug Resistant Organisms: None Reported Past Surgical History: Appendectomy, Bariatric Surgery, Hysterectomy Additional Past Surgical History / Comment(s): Gastric Bypass 09/28/16 Pt had 12 surgeries for cervical cancer Past Anesthesia/Blood Transfusion Reactions: No Reported Reaction Past Psychological History: Anxiety Smoking Status: Vaper Past Alcohol Use History: None Reported Past Drug Use History: None Reported - Past Family History Mother Family Medical History: No Reported History Medications and Allergies Home Medications Medication Instructions Recorded Confirmed Type Omeprazole 40 mg PO DAILY #90 capsule. 09/29/16 11/30/23 Rx Cyclobenzaprine [Flexeril] 10 mg PO TID PRN 11/30/23 11/30/23 History DULoxetine HCL [Cymbalta] 60 mg PO DAILY 11/30/23 11/30/23 History HYDROcodone/APAP 10-325MG [[place] 1 tab PO Q4HR PRN 11/30/23 11/30/23 History 10-325] Multivitamins, Thera [Multivitamin 1 tab PO DAILY 11/30/23 11/30/23 History (formulary)] Propranolol HCl [Propranolol HCl 80 mg PO DAILY 11/30/23 11/30/23 History ER] Rosuvastatin Calcium 5 mg PO DAILY 11/30/23 11/30/23 History Tirzepatide [Mounjaro] 2.5 mg SQ MO 11/30/23 11/30/23 History Valsartan/Hydrochlorothiazide 1 tab PO DAILY 11/30/23 11/30/23 History [Valsartan-Hctz 320-25 mg Tab] Allergies Allergy/AdvReac Type Severity Reaction Status Date / Time ibuprofen [From Motrin] AdvReac Abdominal Verified 11/30/23 07:30 Pain Physical Exam Vitals: Vital Signs Temp Pulse Pulse Resp BP Pulse Ox 11/30/23 06:51 99 24 104/86 99 11/30/23 06:38 115 H 26 H 111/99 100 11/30/23 06:35 240 H 11/30/23 06:30 240 H 11/30/23 06:20 241 H 11/30/23 06:18 242 H 11/30/23 06:06 98.7 F 44 L 26 H 141/61 95 Intake and Output 11/29/23 11/30/23 11/30/23 22:59 06:59 14:59 Other: Weight 124.738 kg Results 11/30/23 06:27 11/30/23 06:27 Cardiac Enzymes 11/30/23 11/30/23 Range/Units 06:27 06:27 AST 59 H (14-36) U/L Troponin I 0.048 H* (0.000-0.034) ng/mL Coagulation 11/30/23 Range/Units 06:27 PT 10.7 (10.0-12.5) sec APTT 24.3 (22.0-30.0) sec CBC 11/30/23 Range/Units 06:27 WBC 17.7 H (3.8-10.6) k/uL RBC 5.78 H (3.80-5.40) m/uL Hgb 17.2 H (11.4-16.0) gm/dL Hct 51.4 H (34.0-46.0) % Plt Count 643 H (150-450) k/uL Comprehensive Metabolic Panel 11/30/23 Range/Units 06:27 Sodium 140 (137-145) mmol/L Potassium 4.3 (3.5-5.1) mmol/L Chloride 104 (98-107) mmol/L Carbon Dioxide 18 L (22-30) mmol/L BUN 13 (7-17) mg/dL Creatinine 0.81 (0.52-1.04) mg/dL Glucose 279 H (74-99) mg/dL Calcium 9.4 (8.4-10.2) mg/dL AST 59 H (14-36) U/L ALT 56 H (4-34) U/L Alkaline Phosphatase 93 (38-126) U/L Total Protein 6.9 (6.3-8.2) g/dL Albumin 4.3 (3.5-5.0) g/dL Current Medications Generic Name Dose Route Start Last Admin Trade Name Freq PRN Reason Stop Dose Admin Sodium Chloride 1,000 mls @ 130 mls/hr 11/30/23 07:00 Saline 0.9% IV .[id number] [facility] Morphine Sulfate 4 mg 11/30/23 06:49 Morphine Sulfate 4 Mg/Ml Syringe IV Q4HR PRN Severe Pain (Scale 7 to 10) Naloxone HCl 0.2 mg 11/30/23 06:49 Naloxone 0.4 Mg/Ml 1 Ml Vial IV Q2M PRN Opioid Reversal Ondansetron HCl 4 mg 11/30/23 06:49 Ondansetron 4 Mg/2 Ml Vial IVP Q8HR PRN Nausea And Vomiting Intake and Output 11/29/23 11/30/23 11/30/23 22:59 06:59 14:59 Other: Weight 124.738 kg 11/30/23 06:27 11/30/23 06:27
[2023-11-30] MEDS: ATORVASTATIN 10 MG TAB PO SCH (11:43)
[2023-11-30] MEDS: hydroCHLOROthiazide 25 MG TAB PO SCH (11:44)
[2023-11-30] MEDS: VALSARTAN 160 MG TAB PO SCH (11:44)
[2023-11-30] MEDS ORDERED: CYCLOBENZAPRINE 10 MG TAB PO PRN (15:14)
[2023-11-30] MEDS: ONDANSETRON 4 MG/2 ML VIAL IVP PRN (15:30)
[2023-11-30] MEDS: MORPHINE SULFATE 4 MG/ML SYRINGE IV PRN (15:35)
--- NOTE | 2023-11-30 16:58 | CA ---
Transthoracic Echo Report Name: Cynthia Holbrook Age: 53 Gender: F : 1970 Exam Date: 11/30/2023 12:00 Exam Location: [facility] Echo Ht (in): 64 Wt (lb): 275 Ordering Physician: Jessica Marley Attending/Referring Phys: [id number], Ayaka Rn Social Services Lidia Bella, UNIQUE Procedure CPT: Indications: LV function Cardiac Hx: Technical Quality: Poor Contrast 1: Definity Total Dose (mL): 2 Contrast 2: Total Dose (mL): MEASUREMENTS (Male / Female) Normal Values 2D ECHO LV Diastolic Diameter PLAX 4.2 cm 4.2 - 5.9 / 3.9 - 5.3 cm LV Systolic Diameter PLAX 3.1 cm IVS Diastolic Thickness 1.2 cm 0.6 - 1.0 / 0.6 - 0.9 cm LVPW Diastolic Thickness 1.2 cm 0.6 - 1.0 / 0.6 - 0.9 cm LV Relative Wall Thickness 0.6 RV Internal Dim ED PLAX 1.7 cm LA Systolic Diameter LX 3.7 cm 3.0 - 4.0 / 2.7 - 3.8 cm M-MODE Aortic Root Diameter MM 3.3 cm LA Systolic Diameter MM 3.7 cm LA Ao Ratio MM 1.1 DOPPLER AV Peak Velocity 120.6 cm/s AV Peak Gradient 5.8 mmHg Mitral E Point Velocity 90.8 cm/s Mitral A Point Velocity 65.0 cm/s Mitral E to A Ratio 1.4 MV Deceleration Time 273.8 ms MV E' Velocity 7.0 cm/s Mitral E to MV E' Ratio 13.0 TR Peak Velocity 204.9 cm/s TR Peak Gradient 16.8 mmHg Right Ventricular Systolic Press 21.8 mmHg FINDINGS Left Ventricle Left ventricular ejection fraction is estimated at 55-60 %. Mildly increased septal wall thickness. Mildly increased posterior wall thickness. Normal Left ventricular size, systolic function with no obvious regional wall motion abnormalities. Normal Left ventricular diastolic filling pattern. Right Ventricle Moderate right ventricular dilatation. Normal right ventricular global systolic function. Right Atrium Normal right atrial size. Left Atrium Normal left atrial size. Mitral Valve Structurally normal mitral valve. Trace mitral regurgitation. No mitral stenosis. No evidence for mitral valve prolapse. Aortic Valve No aortic valve stenosis or regurgitation. Tricuspid Valve Trace tricuspid regurgitation. Structurally normal tricuspid valve. Pulmonic Valve Trace pulmonic regurgitation. Structurally normal pulmonic valve. Pericardium Echo free space anterior to the right ventricle likely represents a fat pad. Aorta Normal size aortic root and proximal ascending aorta. CONCLUSIONS Normal LV function Previewed by: Dr. Eliezer Rosales MD (Electronically Signed) Final Date: 30 November 2023 16:57
[2023-11-30] MEDS ORDERED: RX INFO: IV CONTRAST WAS GIVEN 1 EACH MISC MISCELLANE PRN (17:08)
[2023-11-30] MEDS: HYDROcodone/APAP 10-325MG 1 EACH TAB PO PRN (20:44)
--- NOTE | 2023-11-30 21:19 | CT ---
EXAMINATION TYPE: CT chest w con DATE OF EXAM: 11/30/2023 COMPARISON: None HISTORY: chest pain CT DLP: 947.1 mGycm, Automated exposure control for dose reduction was used. CONTRAST: Performed injected with 100 ml mL of Isovue 300. TECHNIQUE: Axial images were obtained at 5 mm thick sections. Reconstructed images are reviewed on [employer] computer in the coronal plane. FINDINGS: Portion of the thyroid visualized is normal. No suspicious lung nodules or focal infiltrates are present. No enlarged mediastinal or hilar adenopathy is evident. The ascending aorta diameter at the level o f the main pulmonary artery is 3.4 cm. The main pulmonary artery diameter at the bifurcation is 3.[address] sections are obtained through the upper abdomen. There is mild fatty infiltration of the l iver. IMPRESSION: 1. No acute pulmonary process.
[2023-12-01] MEDS: MULTIVITAMINS, THERA 1 EACH TAB PO SCH (08:14)
[2023-12-01] MEDS: PANTOPRAZOLE 40 MG TABLET PO SCH (08:14)
[2023-12-01] MEDS: DULoxetine HCL 60 MG CAPSULE.DR PO SCH (08:14)
--- NOTE | 2023-12-01 09:14 | HP ---
HISTORY AND PHYSICAL A 53-year-old white female with history of sleep apnea, noncompliant with CPAP machine, came to hospital with significant SVT, heart rate, palpitations, near syncope, woke her from a sleep. She has not been using her sleep apnea machine for many months. She will be getting some chest pressure, severely diaphoretic, and chest tightness as well as palpitations in the middle of the night. EKG shows SVT of 242. She came in with rapid heart racing, skipped beats, palpitations, irregular heartbeat, atrial fibrillation. Cardiology has been consulted. They gave her 3 treatments through the IV SVT. HOME MEDICATIONS: 1. Fluoxetine. 2. Vitamin D. 3. Omeprazole 40 daily. 4. Claritin-D. 5. Vitamin A. 6. [place] 7.5 q.6. ALLERGIES: Ibuprofen. PAST MEDICAL HISTORY: diabetes mellitus, GERD, sleep apnea, hypertension, irritable bowel syndrome, Shelton's esophagus. SURGERIES: Bariatric surgery, hysterectomy, appendectomy, surgery for cervical cancer, anxiety. She vapes. FAMILY HISTORY: See old chart. PHYSICAL EXAMINATION: VITAL SIGNS: When I had seen her in the ER, blood pressure 140s over 60s to 80s to 95, temp 97, pulse down to low 40s with adenosine x3. CARDIOVASCULAR: S1, S2. LUNGS: Clear. ENDOCRINE: BMI is over 40. SKIN: Dry. NEUROLOGIC: Cranial nerves intact. PSYCH: Fair mood and affect. ASSESSMENT: 1. SVT, treated with adenosine. 2. History of atrial fibrillation. Cardiology is consulted. Echo has been ordered. 3. Chest pain, SVT. Wait for cardiology recommendations, further orders. Home medications have been ordered for the most part. Prognosis guarded. 4. History of sleep apnea. 5. History of vaping, on current treatment. Prognosis guarded. Follow up as an outpatient. Wait for Cardiology to see her for clearance for discharge. MMODL / IJN: [id number] /
--- NOTE | 2023-12-01 09:16 | P.PN ---
Subjective HISTORY OF PRESENT ILLNESS: This is a 53-year-old female with a past medical history significant for hypertension, hyperlipidemia, diabetes, obstructive sleep apnea, and nicotine dependence in the form of vaping. 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 We have been asked to see the patient in consultation for SVT. Patient examined at the bedside. Patient states that she woke up this morning around 3 AM and was feeling dizzy and lightheaded. She reports having palpitations. She states that she felt like an elephant was sitting on her chest. She also reports tingling of her extremities. She states that she went to work and her symptoms persisted and she was brought to the emergency room for further evaluation. The patient denies any loss of consciousness. She denies any previous cardiac history. Patient was found to be in SVT. She did receive adenosine 3 times with conversion to sinus mechanism. She is maintaining sinus mechanism this morning. At the time of examination, she denies chest pain or pressure. She denies shortness of breath. She does report a history of obstructive sleep apnea but states she no longer uses a CPAP as she has lost some weight and believes she is sleeping better. DIAGNOSTICS: - EKG reveals SVT - Chest xray negative for acute process - Laboratory data: WBC 17.7. Hemoglobin 17.2. Platelet count 643. Sodium 140. Potassium 4.3. BUN 13. Creatinine 0.81. AST 59. ALT 56. Troponin 0.048. TSH 3.600. - Current home cardiac medications include valsartanhydrochlorothiazide 320-25 mg daily, propranolol 80 mg daily. 12/01/2023 Patient examined this morning at the bedside. Patient remains in the emergency room. Patient denies any chest pain or pressure. She denies any shortness of breath. She remains in sinus mechanism. Echocardiogram completed revealing ejection fraction 55 to 60% with trace MR and trace TR PHYSICAL EXAM: VITAL SIGNS: Reviewed. GENERAL: Well-developed in no acute distress. HEENT: Head is normocephalic. Pupils are equal, round. Sclerae anicteric. Mucous membranes of the mouth are moist. Neck supple. No JVD or thyromegaly LUNGS: Respirations even and unlabored. Lungs essentially clear to auscultation bilaterally. HEART: Regular rate and rhythm. S1 and S2 heard. ABDOMEN: Soft. Nondistended. Nontender. EXTREMITIES: Normal range of motion. No clubbing or cyanosis. Peripheral pulses intact. No lower extremity edema NEUROLOGIC: Awake and alert. Oriented x 3. ASSESSMENT: SVT, likely AVNRT Obstructive sleep apnea, not utilizing CPAP machine on an outpatient basis Hypertension Hyperlipidemia Diabetes Nicotine dependence in the form of vaping Morbid obesity: BMI 47.2 PLAN: Continue current cardiac medications Recommend repeat outpatient sleep study to determine if patient continues to require CPAP at night (currently not wearing as she thinks she is okay without it due to weight loss) Recommend ischemic workup. Offered inpatient stress testing to patient. Patient states she does not want to have a stress test performed while in the hospital. She would like to be discharged home today and follow-up on an outpatient basis and complete stress testing on an outpatient basis. Recommend eventual SVT ablation Smoking cessation encouraged Patient may be discharged home today from a cardiac standpoint She is to follow-up postdischarge with Dr. Saul Nurse practitioner note has been reviewed by physician. Signing provider agrees with the documented findings, assessment, and plan of care documented by ASSEMBLY SUPERVISOR as a scribe. Objective - Vital Signs Vital signs: Vital Signs Temp 98.7 F 11/30/23 06:06 Pulse 66 12/01/23 07:03 Resp 18 12/01/23 07:03 BP 120/97 12/01/23 07:03 Pulse Ox 98 12/01/23 07:03 FiO2 - Labs CBC & Chem 7: 11/30/23 06:27 11/30/23 06:27 Labs: Abnormal Lab Results - Last 24 Hours (Table) 11/30/23 11/30/23 11/30/23 Range/Units 06:27 11:08 15:48 Neutrophils # 9.8 H (1.3-7.7) k/uL Lymphocytes # 5.9 H (1.0-4.8) k/uL Monocytes # 1.2 H (0-1.0) k/uL Troponin I 0.087 H* 0.084 H* (0.000-0.034) ng/mL
[2023-12-01 09:32] LABS: ALT 54 U/L (4-34); AST 39 U/L (14-36); African American GFR (CKD) >90 (>60 ml/min/1.73 sqM); Albumin 3.7 g/dL (3.5-5.0); Alkaline Phosphatase 77 U/L (38-126); Anion Gap 3 mmol/L; Blood Urea Nitrogen 9 mg/dL (7-17); Calcium 8.4 mg/dL (8.4-10.2); Carbon Dioxide 33 mmol/L (22-30); Chloride 102 mmol/L (98-107); Glucose 132 mg/dL (74-99); Magnesium 1.8 mg/dL (1.6-2.3); Non-African American GFR(CKD) >90 (>60 ml/min/1.73 sqM); Phosphorus 3.9 mg/dL (2.5-4.5); Potassium 3.8 mmol/L (3.5-5.1); Sodium 138 mmol/L (137-145); Total Bilirubin 0.6 mg/dL (0.2-1.3)
[2023-12-01 09:35] LABS: Basophils # (A) 0.1 k/uL (0-0.2); Basophils % (A) 2 %; Eosinophils # (A) 0.2 k/uL (0-0.7); Eosinophils % (A) 3 %; HCT 42.4 % (34.0-46.0); Lymphocytes # (A) 2.4 k/uL (1.0-4.8); Lymphocytes % (A) 36 %; MCH 29.9 pg (25.0-35.0); MCHC 32.9 g/dL (31.0-37.0); MCV 91.1 fL (80.0-100.0); Mean Platelet Volume 7.3; Monocytes # (A) 0.5 k/uL (0-1.0); Monocytes % (A) 7 %; Neutrophils # (A) 3.5 k/uL (1.3-7.7); Neutrophils % (A) 51 %; Platelet Count 371 k/uL (150-450); RBC 4.65 m/uL (3.80-5.40); RDW 13.4 % (11.5-15.5); WBC 6.8 k/uL (3.8-10.6)
[2023-12-01 09:36] LABS: HGB 13.9 gm/dL (11.4-16.0)
[2023-12-01 12:00] VITALS: BP 122/99; PULSE 80; RESP 20; TEMP 98.9
== END 2023-12-01 12:44 | disposition home or self-care (01) | DRG 309 ==
LOC: EC 05:57 → 3SCARD 06:49
PROVIDERS: ADMIT Family Medicine; ATTEND Family Medicine
DX: I47.19 Other supraventricular tachycardia (principal); Z68.42 Body mass index [BMI] 45.0-49.9, adult; E11.9 Type 2 diabetes mellitus without complications; E66.01 Morbid (severe) obesity due to excess calories; E78.5 Hyperlipidemia, unspecified; F41.9 Anxiety disorder, unspecified; G47.33 Obstructive sleep apnea (adult) (pediatric); I10 Essential (primary) hypertension; F17.290 Nicotine dependence, other tobacco product, uncomplicated; I48.91 Unspecified atrial fibrillation; K22.70 Barrett's esophagus without dysplasia; Z79.899 Other long term (current) drug therapy; Z91.199 Patient's noncompliance with other medical treatment and regimen due to unspecified reason; Z98.84 Bariatric surgery status
CPT/HCPCS: 36415; 71045; 71260; 80053; 83690; 83735; 83880; 84100; 84443; 84484; 85025; 85379; 85610; 85730; 93005; 93306; 96374; 96375; 99291

== ENCOUNTER 2024-02-21 08:48 | Day surgery (SDC) | payer BC ==
[2024-02-21] MEDS: IV FLUID CONTINUATION 1,000 ML IV ONE ×2 (09:50→13:54)
[2024-02-21 10:02] LABS: Glucose,Whole Blood 184 mg/dL (70-110)
[2024-02-21 10:16] LABS: African American GFR (CKD) >90 (>60 ml/min/1.73 sqM); Anion Gap 5 mmol/L; Blood Urea Nitrogen 11 mg/dL (7-17); Calcium 8.7 mg/dL (8.4-10.2); Carbon Dioxide 30 mmol/L (22-30); Chloride 103 mmol/L (98-107); Glucose 179 mg/dL (74-99); Non-African American GFR(CKD) >90 (>60 ml/min/1.73 sqM); Potassium 3.8 mmol/L (3.5-5.1); Sodium 138 mmol/L (137-145)
[2024-02-21 10:19] LABS: Basophils # (A) 0.1 k/uL (0-0.2); Basophils % (A) 1 %; Eosinophils # (A) 0.2 k/uL (0-0.7); Eosinophils % (A) 3 %; HCT 42.5 % (34.0-46.0); HGB 14.1 gm/dL (11.4-16.0); Lymphocytes # (A) 2.2 k/uL (1.0-4.8); Lymphocytes % (A) 32 %; MCH 29.6 pg (25.0-35.0); MCHC 33.2 g/dL (31.0-37.0); MCV 88.9 fL (80.0-100.0); Mean Platelet Volume 7.3; Monocytes # (A) 0.5 k/uL (0-1.0); Monocytes % (A) 7 %; Neutrophils # (A) 3.6 k/uL (1.3-7.7); Neutrophils % (A) 53 %; Platelet Count 334 k/uL (150-450); RBC 4.78 m/uL (3.80-5.40); WBC 6.8 k/uL (3.8-10.6)
[2024-02-21] MEDS ORDERED: PHENYLEPHRINE-0.9% NACL SYG 1,000 MCG/10 ML SYRINGE ONE (10:57)
[2024-02-21] MEDS ORDERED: SUCCINYLCHOLINE CHLORIDE 200 MG/10 ML VIAL IV ONE (10:57)
[2024-02-21] MEDS ORDERED: MIDAZOLAM 2 MG/2 ML VIAL ONE (10:57)
[2024-02-21] MEDS ORDERED: diphenhydrAMINE 50 MG/ML 1 ML VIAL ONE (10:57)
[2024-02-21] MEDS ORDERED: hydrALAZINE HCL 20 MG/ML 1 ML VIAL ONE (10:57)
[2024-02-21] MEDS ORDERED: PHENYLEPHRINE 10 MG/ML VIAL ONE (10:57)
[2024-02-21] MEDS ORDERED: fentaNYL (PF) 50 MCG/ML 2 ML AMP ONE (10:57)
[2024-02-21] MEDS ORDERED: LIDOCAINE 1% INJ 10MG/ML (20 ML MDV) ONE ×3 (10:57→11:36)
[2024-02-21] MEDS ORDERED: PROPOFOL 10 MG/ML 20 ML VIAL IV ONE (10:57)
[2024-02-21] MEDS: LIDOCAINE 1% INJ 10MG/ML (20 ML MDV) SQ ONE ×2 (11:28)
[2024-02-21] MEDS: ROPIVACAINE 5MG/ML 20ML VIAL MISCELLANE ONE (11:32)
[2024-02-21] MEDS: IBUTILIDE 1 MG in SODIUM CHLORIDE 0.9% 50 ML IVPB ONE (12:42)
[2024-02-21] MEDS: LACTATED RINGERS 1,000 ML IV ONE (13:11)
[2024-02-21] MEDS: HEPARIN SODIUM (1,000 UNIT/ML) 1,000 UNIT in SODIUM CHLORIDE 0.9% 1,000 ML IRRIGATION ONE (13:31)
[2024-02-21] MEDS: HEPARIN SODIUM,PORCINE 10,000 UNIT in SODIUM CHLORIDE 0.9% 1,000 ML IRRIGATION ONE (13:32)
--- NOTE | 2024-02-21 13:51 | P.HPCAR ---
History of Present Illness This is Dr. Newsome dictating an H/P on this patient The patient was interviewed and examined IMPRESSION / ASSESSMENT: Recurrent palpitations and supraventricular tachycardia greater than 200 beats a minute, apparently adenosine sensitive Very symptomatic with these episodes with nausea and near syncope and chest pain Morbid obesity PLAN: Diagnostic EP study and ablation for SVT HPI Patient is admitted to the hospital with recurrent palpitations. She has been experiencing this for the last 1 year but when she came to the hospital she was presyncopal, complaining of chest discomfort Apparently she was given adenosine 3 doses in the ER subsequently treated with metoprolol 2D echo shows preserved LV size and function, moderate RV enlargement Off beta-blockers she continues to experience episodes of palpitations in the last 3 to 4 days with chest pain and dizzy spells ROS: No fever chills or rigors, no cough, phlegm or expectoration, no nausea, vomiting or diarrhea, no hematuria, dysuria, no musculoskeletal complaints, no strokes or seizures, no skin lesions. EXAMINATION: 145/92 mmHg pulse rate in the 80s afebrile Normal heart sounds normal S1 normal S2 Breath sounds are clear no rhonchi no crackles Abdomen soft Neck veins difficult to assess REVIEW OF LABS, ECG & MEDICAL DATA White count normal Hematocrit normal Potassium 3.8 BUN and creatinine normal Elevated glucose Physical Exam Vitals: Vital Signs Temp Pulse Resp BP Pulse Ox 02/21/24 10:00 98.3 F 82 16 145/92 98 Intake and Output 02/20/24 02/21/24 02/21/24 22:59 06:59 14:59 Intake Total 1161 Balance 1161 Intake: IV 1161 Other: Weight 131 kg Past Medical History Past Medical History: Cancer, Diabetes Mellitus, GERD/Reflux, Hypertension, Osteoarthritis (OA), Sleep Apnea/CPAP/BIPAP, Supraventricular Tachycardia (SVT) Additional Past Medical History / Comment(s): Barrets esophagus, back pain (djd), had cervical cancer 1990. IBS, not currently using CPAP, see Dr Newsome H & P History of Any Multi-Drug Resistant Organisms: None Reported Past Surgical History: Appendectomy, Bariatric Surgery, Cholecystectomy, Hysterectomy Additional Past Surgical History / Comment(s): Gastric Bypass 09/28/16 Pt had 12 surgeries for cervical cancer Past Anesthesia/Blood Transfusion Reactions: No Reported Reaction Smoking Status: Vaper - Past Family History Mother Family Medical History: No Reported History Physical Examination Vital Signs Temp Pulse Resp BP Pulse Ox 02/21/24 10:00 98.3 F 82 16 145/92 98 Intake and Output 02/20/24 02/21/24 02/21/24 22:59 06:59 14:59 Intake Total 1161 Balance 1161 Intake: IV 1161 Other: Weight 131 kg Results 02/21/24 09:49 02/21/24 09:49 CBC 02/21/24 Range/Units 09:49 WBC 6.8 (3.8-10.6) k/uL RBC 4.78 (3.80-5.40) m/uL Hgb 14.1 (11.4-16.0) gm/dL Hct 42.5 (34.0-46.0) % Plt Count 334 (150-450) k/uL Comprehensive Metabolic Panel 02/21/24 Range/Units 09:49 Sodium 138 (137-145) mmol/L Potassium 3.8 (3.5-5.1) mmol/L Chloride 103 (98-107) mmol/L Carbon Dioxide 30 (22-30) mmol/L BUN 11 (7-17) mg/dL Creatinine 0.44 L (0.52-1.04) mg/dL Glucose 179 H (74-99) mg/dL Calcium 8.7 (8.4-10.2) mg/dL Current Medications Generic Name Dose Route Start Last Admin Trade Name Freq PRN Reason Stop Dose Admin Sodium Chloride 1,000 mls @ 50 mls/hr 02/21/24 05:45 Saline 0.9% IV 03/22/24 05:46 .Q20H ROLO Magnesium Sulfate/Dextrose 1 100 mls @ 100 mls/hr 02/21/24 13:00 gm/ IV Solution IVPB 02/21/24 14:59 Q1H ROLO Intake and Output 02/20/24 02/21/24 02/21/24 22:59 06:59 14:59 Intake Total 1161 Balance 1161 Intake: IV 1161 Other: Weight 131 kg Patient Weight 02/22/24 06:59 Weight 131 kg 02/21/24 09:49 02/21/24 09:49
--- NOTE | 2024-02-21 14:03 | P.EPPROC ---
- EP Procedure Note Electrophysiology Procedure Note: Diagnosis Recurrent palpitations associated with presyncope chest pain shortness of breath Narrow complex tachycardia with RVR greater than 200 beats a minute, very symptomatic Increasing frequency over the last 1 year After holding metoprolol for last 3 days she continued to have short episodes of palpitations associate with chest pain and dizziness Morbid obesity Final diagnosis Antegrade slow pathway conduction Spontaneous atrial fibrillation episodes that organized into an irregular atrial tachycardia sometimes with 2-1 AV block and sometimes one-to-one block with heart rates greater than 200 beats a minute and right bundle branch block aberrancy 1 mg ibutilide administered to suppress atrial fibrillation and allow slow pathway ablation for management of AV marilee reentry Successful elimination of antegrade slow pathway conduction No inducible AV marilee reentry at the end of the procedure Details Patient was brought to the EP lab in a fasting state. Written informed consent was obtained prior to the procedure. Venous sheaths were placed in the right left femoral veins Catheters were placed in the high right atrium His bundle area right ventricle and coronary sinus Later a deflectable long sheath and an irrigated tip ablation catheter was placed for mapping of the slow pathway Baseline measurements were normal and were as follows Sinus cycle length 719 ms, WA interval 114 ms, QRS 88 ms and QT 403 ms AH 61 and HV 50 Sinus node recovery times was 614 and 808 ms Corresponding corrected sinus node recovery times and normal AV node Wenckebach block 230 ms Antegrade slow pathway conduction at 260 ms Intermittent right bundle branch block aberrancy with atrial pacing VA Wenckebach block 250 ms Spontaneous induction of atrial fibrillation that organized into an somewhat irregular atrial tachycardia Initially 2-1 AV block and then subsequently one-to-one conduction with right bundle branch block aberrancy Atrial fibrillation did not terminate spontaneously General anesthesia was provided as the patient is very uncomfortable with shoulder pain in the supine position Following that electrical cardioversion was performed successfully to sinus rhythm with a 200 J biphasic shock However the patient had a recurrence of atrial fibrillation Therefore 1 mg of ibutilide was infused over 10 minutes This resulted in termination of atrial fibrillation that was preceded by atrial cycle length prolongation Following that a long sheath, deflectable was placed An irrigated tip ablation catheter was placed Mapping of the hiss cloud and the coronary sinus was performed Following that mapping of the slow pathway was performed RF ablation was applied with good contact force and power up to 35 W Junctional beat was obtained. RF ablation was performed around that site Following that EP study was repeated and there was no evidence for antegrade slow pathway conduction AV node Wenckebach block 320 ms no slow pathway conduction VA Wenckebach block less than 250 ms Atrial extra stimulation was performed up to double extrastimuli from the high right atrium and the coronary sinus No inducible SVT Ventricle extrastimulation's performed Retrograde conduction was midline and decremental, no inducible SVT WA interval at the end of the procedure 138 ms QT interval 335 ms 2 g IV magnesium administered following ibutilide infusion All sheaths were removed. Vascade closure device applied. Patient successfully extubated
--- NOTE | 2024-02-21 14:06 | P.PRLE ---
RE: Cynthia Holbrook [facility] [place] Cynthia Holbrook underwent a diagnostic EP study She underwent successful ablation of the slow pathway for management of AV marilee reentry However she had spontaneously induced atrial fibrillation, recurrent that required intravenous ibutilide infusion for suppression to allow for completion of the procedure Therefore in addition to AV marilee reentry this lady has A-fib with RVR with heart rates greater than 200 beats a minute This may be part of her clinical arrhythmia and I would strongly recommend an A- fib ablation in the near future after anticoagulation is initiated For now we will continue metoprolol succinate 50 mg p.o. daily along with valsartan hydrochlorothiazide Based on the 2023 atrial fibrillation guidelines Weight reduction, sleep apnea assessment and minimizing alcohol intake as well as avoidance of opiates and cannabis products are recommended for primary prevention of atrial fibrillation Thank you for entrusting me with the care of the patient Warm regards Sincerely Bruno Newsome
[2024-02-21 14:34] LABS: Glucose,Whole Blood 217 mg/dL (70-110)
[2024-02-21] MEDS: INSULIN ASPART (NovoLOG) 100 UNIT/ML VIAL SQ ONE (14:46)
[2024-02-21] MEDS: POTASSIUM CHLORIDE ER 20 MEQ TAB.ER PO STA (16:52)
[2024-02-21] MEDS: SODIUM CHLORIDE 0.9% 1,000 ML IV SCH (17:11)
[2024-02-21] MEDS: MAGNESIUM SULFATE-D5W PMX 1 GM in DEXTROSE/WATER 1 100ML.BAG IVPB SCH (18:18)
[2024-02-21] MEDS: ACETAMINOPHEN IV (For NPO) 1,000 MG in EMPTY BAG 1 BAG IVPB ONE (18:20)
[2024-02-21] MEDS: HYDROcodone/APAP 10-325MG 1 EACH TAB PO PRN (22:09)
[2024-02-22] MEDS: PANTOPRAZOLE 40 MG TABLET PO SCH (06:14)
[2024-02-22] MEDS: ACETAMINOPHEN TAB 325 MG TAB PO PRN (06:16)
[2024-02-22 07:50] VITALS: BP 160/95; PULSE 96; RESP 18; TEMP 98.2
[2024-02-22] MEDS ORDERED: VALSARTAN 160 MG TAB PO SCH (09:00)
[2024-02-22] MEDS ORDERED: METOPROLOL SUCCINATE (ER) 50 MG TAB.ER.24H PO SCH (09:00)
[2024-02-22] MEDS ORDERED: ATORVASTATIN 10 MG TAB PO SCH (09:00)
[2024-02-22] MEDS ORDERED: hydroCHLOROthiazide 25 MG TAB PO SCH (09:00)
--- NOTE | 2024-02-22 12:49 | P.DS ---
Providers Attending physician: Bruno Newsome Primary care physician: [facility] Course: Patient is doing well. She is walking around the room no chest discomfort dizziness or lightheadedness Her groin is healed well No chest discomfort dizziness or lightheadedness On examination blood pressure is normal Heart sounds are normal and regular Breath sounds are clear Final diagnosis Successful ablation of the slow pathway for management of AV marilee reentry Spontaneous episodes of atrial fibrillation that organized into an irregular atrial tachycardia with RVR greater than 200 beats a minute Suggest Resume antihypertensive therapy and beta-blockers 30-day event monitor Strongly consider A-fib ablation after initiation of anticoagulation Follow-up with Dr. Saul Plan - Discharge Summary Discharge Rx Participant: Yes New Discharge Prescriptions: No Action Omeprazole 40 mg PO DAILY #90 capsule. Valsartan/Hydrochlorothiazide [Valsartan-Hctz 320-25 mg Tab] 1 tab PO DAILY DULoxetine HCL [Cymbalta] 60 mg PO DAILY Tirzepatide [Mounjaro] 2.5 mg SQ MO HYDROcodone/APAP 10-325MG [[place] 10-325] 1 tab PO Q4HR PRN PRN Reason: Pain Rosuvastatin Calcium 5 mg PO DAILY Metoprolol Succinate (ER) [Toprol XL] 50 mg PO DAILY Discharge Medication List Omeprazole 40 mg PO DAILY #90 capsule. 09/29/16 [Rx] DULoxetine HCL [Cymbalta] 60 mg PO DAILY 11/30/23 [History] HYDROcodone/APAP 10-325MG [[place] 10-325] 1 tab PO Q4HR PRN 11/30/23 [History] Rosuvastatin Calcium 5 mg PO DAILY 11/30/23 [History] Tirzepatide [Mounjaro] 2.5 mg SQ MO 11/30/23 [History] Valsartan/Hydrochlorothiazide [Valsartan-Hctz 320-25 mg Tab] 1 tab PO DAILY 11/30/23 [History] Metoprolol Succinate (ER) [Toprol XL] 50 mg PO DAILY 02/15/24 [History] Follow up Appointment(s)/Referral(s): Tono Saul MD [STAFF PHYSICIAN] - 02/28/24 10:45 am Patient Instructions/Handouts: Electrophysiology Study (DC) Activity/Diet/Wound Care/Special Instructions: no soaking in tubs, pools, spas no heavy lifting or repeatedly bending at the hips you may shower and pat sites dry and leave open to air IF YOU NOTICE ANY BLEEDING, SWELLING, OR INCREASED PAIN APPLY FIRM PRESSURE WITH A FIST AND GO TO THE NEAREST ER Follow up in the office in one week with Dr. Saul Discharge Disposition: HOME SELF-CARE
== END 2024-02-22 09:38 | disposition home or self-care (01) ==
LOC: CATHEP 08:48 → 6NMEDSUR 18:03 → CATHEP 02-22 09:38
PROVIDERS: ATTEND Internal Medicine Clinical Cardiac Electrophysiology
DX: I48.91 Unspecified atrial fibrillation (principal); R55 Syncope and collapse; I45.10 Unspecified right bundle-branch block; E11.9 Type 2 diabetes mellitus without complications; I10 Essential (primary) hypertension; E66.01 Morbid (severe) obesity due to excess calories; Z68.42 Body mass index [BMI] 45.0-49.9, adult; F41.8 Other specified anxiety disorders; K21.9 Gastro-esophageal reflux disease without esophagitis; F17.210 Nicotine dependence, cigarettes, uncomplicated; Z82.49 Family history of ischemic heart disease and other diseases of the circulatory system; Z88.6 Allergy status to analgesic agent; F17.290 Nicotine dependence, other tobacco product, uncomplicated; Z79.85 Long-term (current) use of injectable non-insulin antidiabetic drugs; Z79.899 Other long term (current) drug therapy
CPT/HCPCS: 93005; 93623; 93653; 86900; 86901; 80048; 84443; 85025; 86850; 92960; C1894; C1769; C1760; C1766; C1730 ×3; C1732; J1644 ×2; J2001; J1742; J2795

== ENCOUNTER 2024-07-07 22:55 | Emergency (ER) | payer BC ==
[2024-07-07 23:09] VITALS: BP 106/74; RESP 18
--- NOTE | 2024-07-07 23:30 | ED ---
General Adult HPI - General Chief complaint: Chest Pain Stated complaint: Chest Pain Time Seen by Provider: 07/07/24 23:11 Source: EMS Mode of arrival: EMS Limitations: no limitations - History of Present Illness Initial comments: Cynthia is a pleasant 53yo with PMH of small atrial fibrillation for which she has undergone ablation in the past she continues to take daily Eliquis as well as her other prescribed medications though she is not sure what they are. Patient states that today she was going to dinner she got another car got lightheaded and felt her heart start racing she knew she was in an episode of A- fib RVR. She was seen in outside hospital where she was found to be in A-fib with RVR rate as high as 217. Patient converted to sinus rhythm with Cardizem her troponin was negative her magnesium was mildly low and was replaced and she was to our facility where she has established cardiology. Patient states that once her heart rate slowed down she has not had any pain palpitations or shortness of breath. She has history of coronary artery disease. States her caffeine intake is usually a couple coffee and occasional pop during the day, no weight loss supplements or stimulant medications she does vape. - Related Data Home Medications Medication Instructions Recorded Confirmed DULoxetine HCL [Cymbalta] 60 mg PO DAILY 11/30/23 02/21/24 HYDROcodone/APAP 10-325MG [[place] 1 tab PO Q4HR PRN 11/30/23 02/21/24 10-325] Rosuvastatin Calcium 5 mg PO DAILY 11/30/23 02/21/24 Tirzepatide [Mounjaro] 2.5 mg SQ MO 11/30/23 02/15/24 Valsartan/Hydrochlorothiazide 1 tab PO DAILY 11/30/23 02/21/24 [Valsartan-Hctz 320-25 mg Tab] Metoprolol Succinate (ER) [Toprol 50 mg PO DAILY 02/15/24 02/21/24 XL] Previous Rx's Medication Instructions Recorded Omeprazole 40 mg PO DAILY #90 capsule. 09/29/16 Allergies Allergy/AdvReac Type Severity Reaction Status Date / Time ibuprofen [From Motrin] AdvReac Abdominal Verified 02/21/24 18:42 Pain Review of Systems ROS Statement: Those systems with pertinent positive or pertinent negative responses have been documented in the HPI. ROS Other: All systems not noted in ROS Statement are negative. Past Medical History Past Medical History: Cancer, Diabetes Mellitus, GERD/Reflux, Hypertension, Osteoarthritis (OA), Sleep Apnea/CPAP/BIPAP, Supraventricular Tachycardia (SVT) Additional Past Medical History / Comment(s): Barrets esophagus, back pain (djd), had cervical cancer 1990. IBS, not currently using CPAP, see Dr Newsome [facility] & P History of Any Multi-Drug Resistant Organisms: None Reported Past Surgical History: Appendectomy, Bariatric Surgery, Cholecystectomy, Hysterectomy Additional Past Surgical History / Comment(s): Gastric Bypass 09/28/16 Pt had 12 surgeries for cervical cancer Past Anesthesia/Blood Transfusion Reactions: No Reported Reaction Past Psychological History: Anxiety, Depression Smoking Status: Vaper Past Alcohol Use History: None Reported Past Drug Use History: None Reported - Past Family History Mother Family Medical History: No Reported History General Exam - General Exam Comments Initial Comments: Physical Exam GENERAL: Patient is well-developed and well-nourished. Patient is nontoxic and well- hydrated and is in no distress. HENT: Normocephalic, Atraumatic. EYES: PERRL, EOMI PULMONARY: Unlabored respirations. No audible rales rhonchi or wheezing was noted. CARDIOVASCULAR: There is a regular rate and rhythm without any murmurs gallops or rubs. ABDOMEN: Soft and nontender with normal bowel sounds. SKIN: Skin is clear with no lesions or rashes and otherwise unremarkable. : Deferred NEUROLOGIC: Patient is alert and oriented x3. Moving all extremities spontaneously MUSCULOSKELETAL: Normal extremities with adequate strength and full range of motion. No lower extremity swelling or edema. No calf tenderness. PSYCHIATRIC: Normal psychiatric evaluation. Limitations: no limitations Course Vital Signs 07/07/24 23:00 Pulse Rate 74 Respiratory 18 Rate Blood Pressure 106/74 O2 Sat by Pulse 96 Oximetry EKG Findings - EKG Comments: EKG Findings:: EG interpreted by me EKG obtained due to palpitations EKG obtained at 2303 rate is 69 rhythm is sinus normal axis normal intervals AK 149 QRS 98 QTc [address] elevations or depressions no evidence of ischemia or infarction. Medical Decision Making - Medical Decision Making Was pt. sent in by a medical professional or institution (, PA, LITHOPRESS OPERATOR, urgent care, hospital, or penitentiary...) When possible be specific @ -Transferred from stand-alone ER on 26 mile Did you speak to anyone other than the patient for history (EMS, parent, family, police, friend...)? What history was obtained from this source @ -Family, EMS transferring physician Did you review nursing and triage notes (agree or disagree)? Why? @ -I reviewed and agree with nursing and triage notes Were old charts reviewed (outside hosp., previous admission, EMS record, old EKG, old radiological studies, urgent care reports/EKG's, penitentiary records)? Report findings @ -Previous labs were reviewed Differential Diagnosis (chest pain, altered mental status, abdominal pain women, abdominal pain men, vaginal bleeding, weakness, fever, dyspnea, syncope, headache, dizziness, GI bleed, back pain, seizure, CVA, palpatations, mental health)? @ -NA EKG interpreted by me (3pts min.). @ -As above X-rays interpreted by me (1pt min.). @ -None done CT interpreted by me (1pt min.). @ -None done U/S interpreted by me (1pt. min.). @ -None done What testing was considered but not performed or refused? (CT, X-rays, U/S, labs)? Why? @ -None What meds were considered but not given or refused? Why? @ Cardizem discontinued on arrival becasuse patient in Sinus Rhythm on arrival Did you discuss the management of the patient with other professionals (professionals i.e. , PA, LITHOPRESS OPERATOR, lab, RT, psych nurse, social services technician, center administrator, teacher, special skills officer, case resource manager)? Give summary @ -No Was smoking cessation discussed for >3mins.? @ -No Was critical care preformed (if so, how long)? @ -No Were there social determinants of health that impacted care today? How? (Homelessness, low income, unemployed, alcoholism, drug addiction, transportation, low edu. Level, literacy, decrease access to med. care, senior care, r ehab)? @ -No Was there de-escalation of care discussed even if they declined (Discuss DNR or withdrawal of care, Hospice)? DNR status @ -No What co-morbidities impacted this encounter? (DM, HTN, Smoking, COPD, CAD, Cancer, CVA, ARF, Chemo, Hep., AIDS, mental health diagnosis, sleep apnea, morbid obesity)? @ -None Was patient admitted / discharged? Hospital course, mention meds given and route, prescriptions, significant lab abnormalities, going to OR and other pertinent info. @ -Discharged Patient was seen and evaluated, history obtained from patient, transfer packet reviewed Patient in sinus rhythm, Cardizem was stopped. Patient was not on any anticoagulant as she is on Eliquis at home. Labs were repeated there may have been some patient's potassium was now elevated which was not at the outside hospital. Troponin is not elevated. Patient is asymptomatic remains in sinus rhythm throughout her stay in the emergency department at this time is stable for discharge home to continue her usual medications Undiagnosed new problem with uncertain prognosis? @ -No Drug Therapy requiring intensive monitoring for toxicity (Heparin, Nitro, Insulin, Cardizem)? @ -No Were any procedures done? @ -No Diagnosis/symptom? @ -A Fib with RVR Acute, or Chronic, or Acute on Chronic? @ -Acute Uncomplicated (without systemic symptoms) or Complicated (systemic symptoms)? @ -Uncomplicated Side effects of treatment? @ -No Exacerbation, Progression, or Severe Exacerbation? @ -No Poses a threat to life or bodily function? How? (Chest pain, [place], PR, pneumonia, PE, COPD, DKA, ARF, appy, cholecystitis, CVA, Diverticulitis, Homicidal, Suicidal, threat to staff... and all critical care pts) @ -No - Lab Data Result diagrams: 07/07/24 23:25 07/07/24 23:25 Lab Results 07/07/24 07/07/24 07/07/24 Range/Units 23:25 23:25 23:25 WBC 8.2 (3.8-10.6) k/uL RBC 5.58 H (3.80-5.40) m/uL Hgb 16.4 H (11.4-16.0) gm/dL Hct 49.0 H (34.0-46.0) % MCV 87.8 (80.0-100.0) fL MCH 29.4 (25.0-35.0) pg MCHC 33.4 (31.0-37.0) g/dL RDW 12.9 (11.5-15.5) % Plt Count 432 (150-450) k/uL MPV 7.3 Neutrophils % 42 % Lymphocytes % 45 % Monocytes % 6 % Eosinophils % 3 % Basophils % 1 % Neutrophils # 3.5 (1.3-7.7) k/uL Lymphocytes # 3.7 (1.0-4.8) k/uL Monocytes # 0.5 (0-1.0) k/uL Eosinophils # 0.2 (0-0.7) k/uL Basophils # 0.1 (0-0.2) k/uL Sodium 138 (137-145) mmol/L Potassium 5.7 H (3.5-5.1) mmol/L Chloride 110 H (98-107) mmol/L Carbon Dioxide 22 (22-30) mmol/L Anion Gap 6 mmol/L BUN 12 (7-17) mg/dL Creatinine 0.58 (0.52-1.04) mg/dL Est GFR (CKD-EPI)AfAm >90 (>60 ml/min/1.73 sqM) Est GFR (CKD-EPI)NonAf >90 (>60 ml/min/1.73 sqM) Glucose 182 H (74-99) mg/dL Calcium 8.6 (8.4-10.2) mg/dL Total Bilirubin 1.8 H (0.2-1.3) mg/dL AST 77 H (14-36) U/L ALT 72 H (4-34) U/L Alkaline Phosphatase 88 (38-126) U/L Troponin I 0.018 (0.000-0.034) ng/mL NT-Pro-B Natriuret Pep 76 pg/mL Total Protein 7.4 (6.3-8.2) g/dL Albumin 4.4 (3.5-5.0) g/dL TSH 4.160 (0.465-4.680) mIU/L Disposition Clinical Impression: Atrial fibrillation with RVR Disposition: HOME SELF-CARE Condition: Stable Is patient prescribed a controlled substance at d/c from ED?: No Referrals: Miles Bolanos DO [Primary Care Provider] - 1-2 days Tono Saul MD [STAFF PHYSICIAN] - 1-2 days
[2024-07-07 23:37] LABS: Basophils # (A) 0.1 k/uL (0-0.2); Basophils % (A) 1 %; Eosinophils # (A) 0.2 k/uL (0-0.7); Eosinophils % (A) 3 %; HGB 16.4 gm/dL (11.4-16.0); Lymphocytes # (A) 3.7 k/uL (1.0-4.8); Lymphocytes % (A) 45 %; MCH 29.4 pg (25.0-35.0); MCHC 33.4 g/dL (31.0-37.0); MCV 87.8 fL (80.0-100.0); Mean Platelet Volume 7.3; Monocytes # (A) 0.5 k/uL (0-1.0); Monocytes % (A) 6 %; Neutrophils # (A) 3.5 k/uL (1.3-7.7); Neutrophils % (A) 42 %; Platelet Count 432 k/uL (150-450); RBC 5.58 m/uL (3.80-5.40); RDW 12.9 % (11.5-15.5); WBC 8.2 k/uL (3.8-10.6)
[2024-07-07 23:48] LABS: ALT 72 U/L (4-34); AST 77 U/L (14-36); African American GFR (CKD) >90 (>60 ml/min/1.73 sqM); Albumin 4.4 g/dL (3.5-5.0); Alkaline Phosphatase 88 U/L (38-126); Anion Gap 6 mmol/L; Blood Urea Nitrogen 12 mg/dL (7-17); Calcium 8.6 mg/dL (8.4-10.2); Carbon Dioxide 22 mmol/L (22-30); Chloride 110 mmol/L (98-107); Glucose 182 mg/dL (74-99); Non-African American GFR(CKD) >90 (>60 ml/min/1.73 sqM); Sodium 138 mmol/L (137-145); Total Bilirubin 1.8 mg/dL (0.2-1.3); Total Protein 7.4 g/dL (6.3-8.2)
[2024-07-07 23:50] LABS: Potassium 5.7 mmol/L (3.5-5.1)
[2024-07-07 23:57] LABS: NT-Pro-B-Type Natriuretic Pept 76 pg/mL
[2024-07-08 01:03] VITALS: PULSE 79; TEMP 98.4
== END 2024-07-08 01:03 | disposition home or self-care (01) ==
LOC: EC 22:55
DX: I48.91 Unspecified atrial fibrillation (principal); F17.290 Nicotine dependence, other tobacco product, uncomplicated; Z88.6 Allergy status to analgesic agent
CPT/HCPCS: 36415; 80053; 83880; 84443; 84484; 85025; 93005; 99285

== ENCOUNTER → 2024-07-24 | Outpatient (CLI) | payer BC ==
[2024-07-24 14:46] LABS: Basophils # (A) 0.12 X 10*3/uL (0.00-0.10); Basophils % (A) 1.7 %; Eosinophils # (A) 0.13 X 10*3/uL (0.04-0.35); Eosinophils % (A) 1.8 %; HCT 49.3 % (37.2-46.3); HGB 16.1 g/dL (12.0-15.0); Lymphocytes # (A) 2.29 X 10*3/uL (0.90-5.00); Lymphocytes % (A) 31.9 %; MCH 28.4 pg (27.0-32.0); MCHC 32.7 g/dL (32.0-37.0); MCV 86.9 FL (80.0-97.0); Mean Platelet Volume 8.1 FL (9.5-12.2); Monocytes # (A) 0.64 X 10*3/uL (0.20-1.00); Monocytes % (A) 8.9 %; NRBC Per 100 WBC 0 X 10*3/uL (0.00-0.01); Neutrophils # (A) 3.98 X 10*3/uL (1.80-7.70); Neutrophils % (A) 55.6 %; Platelet Count 349 X 10*3/uL (140-440); RBC 5.67 X 10*6/uL (4.10-5.20); WBC 7.17 X 10*3/uL (4.50-10.00)
[2024-07-24 14:56] LABS: Blood Urea Nitrogen 15.7 mg/dL (9.0-27.0); Carbon Dioxide 28.8 mmol/L (21.6-31.8); Chloride 98 mmol/L (96-109); Potassium 4.4 mmol/L (3.5-5.5); Sodium 135 mmol/L (135-145)
== END | disposition home or self-care (01) ==
LOC: LABPAT 11:07
PROVIDERS: ATTEND Internal Medicine Clinical Cardiac Electrophysiology
DX: Z01.818 Encounter for other preprocedural examination (principal); I48.0 Paroxysmal atrial fibrillation; I47.10 Supraventricular tachycardia, unspecified
CPT/HCPCS: 80051; 82565; 84520; 85025

== ENCOUNTER 2024-08-21 09:27 | Day surgery (SDC) | payer BC ==
[2024-08-15 11:12] VITALS: BMI 47.2
[2024-08-21] MEDS: IV FLUID CONTINUATION 1,000 ML IV ONE (10:06)
[2024-08-21] MEDS: SODIUM CHLORIDE 0.9% 1,000 ML IV SCH (10:06)
[2024-08-21 10:08] LABS: Glucose,Whole Blood 142 mg/dL (70-110)
[2024-08-21] MEDS ORDERED: SUCCINYLCHOLINE CHLORIDE 200 MG/10 ML VIAL IV ONE (11:13)
[2024-08-21] MEDS ORDERED: WATER FOR INJECTION, STERILE 10 ML VIAL IV ONE (11:13)
[2024-08-21] MEDS ORDERED: MIDAZOLAM 2 MG/2 ML VIAL ONE (11:13)
[2024-08-21] MEDS ORDERED: HEPARIN SODIUM,PORCINE 10,000 UNIT/ML 1 ML VIAL ONE (11:13)
[2024-08-21] MEDS ORDERED: PROPOFOL 10 MG/ML 20 ML VIAL IV ONE (11:13)
[2024-08-21] MEDS ORDERED: PHENYLEPHRINE 10 MG/ML VIAL ONE (11:13)
[2024-08-21] MEDS ORDERED: LIDOCAINE 1% INJ 10MG/ML (20 ML MDV) ONE (11:13)
[2024-08-21] MEDS ORDERED: fentaNYL (PF) 50 MCG/ML 2 ML AMP ONE (11:13)
[2024-08-21] MEDS: HEPARIN SODIUM,PORCINE 10,000 UNIT in SODIUM CHLORIDE 0.9% 1,000 ML IRRIGATION ONE (11:39)
[2024-08-21] MEDS: HEPARIN SOD,PORK IN 0.45% NACL 25,000 UNIT in 0.45% NACL 1 250ML.BAG IV ONE (11:39)
[2024-08-21] MEDS: HEPARIN SODIUM,PORCINE (1 ML) 2,500 UNIT in SODIUM CHLORIDE 0.9% 250 ML IRRIGATION ONE (11:40)
--- NOTE | 2024-08-21 11:57 | P.HPCAR ---
History of Present Illness This is Dr. Newsome dictating an H/P on this patient The patient was interviewed and examined IMPRESSION / ASSESSMENT: Paroxysmal atrial fibrillation with RVR up to 240 beats minute Recurrent episodes and very symptomatic associated with presyncope and chest pain and nausea Failed medical treatment Increased BMI/morbid obesity Type 2 diabetes Hypertension History of cigarette smoking PLAN: Proceed with A-fib ablation Continue anticoagulation with Eliquis Continue antihypertensive therapy Heparin dose calculated HPI Patient continues to have episodes of palpitations and after I saw her, she had yet another admission to an urgent care for rapid tachycardia ROS: No fever chills or rigors, no cough, phlegm or expectoration, no nausea, vomiting or diarrhea, no hematuria, dysuria, no musculoskeletal complaints, no strokes or seizures, no skin lesions. EXAMINATION: Afebrile 97.2 F, pulse rate 60, respirations normal, blood pressure 137/100 mmHg Heart sounds S1-S2 normal Clear lungs no rhonchi no crackles No lower extremity edema Soft abdomen REVIEW OF LABS, ECG & MEDICAL DATA Glucose 142 Medications reviewed Physical Exam Vitals: Vital Signs Temp Pulse Resp BP Pulse Ox 08/21/24 09:58 97.2 F L 60 16 137/103 96 Intake and Output 08/20/24 08/21/24 08/21/24 22:59 06:59 14:59 Intake Total 50 Balance 50 Intake: IV 50 Other: Weight 126.2 kg Past Medical History Past Medical History: Atrial Fibrillation, Cancer, Diabetes Mellitus, GERD/Reflux, Hypertension, Myocardial Infarction ([place]), Osteoarthritis (OA), S leep Apnea/CPAP/BIPAP, Supraventricular Tachycardia (SVT) Additional Past Medical History / Comment(s): See Dr. Jerod Stephens Barrets esophagus, back pain (djd), had cervical cancer 1990no radiation, no chemo. IBS, not currently using CPAP, see Dr Jerod Trin[place] & Femi. Type II diabetic NIDDM. "When I had my heart attack they had to shock me three times." Last Myocardial Infarction Date:: 11/2023 History of Any Multi-Drug Resistant Organisms: None Reported Past Surgical History: Appendectomy, Bariatric Surgery, Cardiac Ablation, Cholecystectomy, Hysterectomy Additional Past Surgical History / Comment(s): Gastric Bypass 09/28/16 Pt had 12 surgeries for cervical cancer. Past Anesthesia/Blood Transfusion Reactions: No Reported Reaction Additional Past Anesthesia/Blood Transfusion Reaction / Comment(s): "I woke up during last heart ablation." No hx of blood transfusion to date. Smoking Status: Vaper - Past Family History Mother Family Medical History: No Reported History Physical Examination Vital Signs Temp Pulse Resp BP Pulse Ox 08/21/24 09:58 97.2 F L 60 16 137/103 96 Intake and Output 08/20/24 08/21/24 08/21/24 22:59 06:59 14:59 Intake Total 50 Balance 50 Intake: IV 50 Other: Weight 126.2 kg Results Current Medications Generic Name Dose Route Start Last Admin Trade Name Freq PRN Reason Stop Dose Admin Sodium Chloride 1,000 mls @ 20 mls/hr 08/21/24 06:03 08/21/24 10:06 Saline 0.9% IV 09/20/24 06:02 20 mls/hr .Q24H ROLO Administration Intake and Output 08/20/24 08/21/24 08/21/24 22:59 06:59 14:59 Intake Total 50 Balance 50 Intake: IV 50 Other: Weight 126.2 kg Patient Weight 08/22/24 06:59 Weight 126.2 kg
[2024-08-21] MEDS: LIDOCAINE 1% INJ 10MG/ML (20 ML MDV) SQ ONE (12:05)
[2024-08-21] MEDS: IOPAMIDOL-250 100ML BTL IVP ONE (14:07)
[2024-08-21] MEDS ORDERED: ACETAMINOPHEN TAB 325 MG TAB PO PRN (14:43)
--- NOTE | 2024-08-21 14:50 | P.EPPROC ---
- EP Procedure Note Electrophysiology Procedure Note: PROCEDURE A. fib ablation with antral level PVI DIAGNOSIS Paroxysmal atrial fibrillation, symptomatic, refractory to therapy RESULT No left atrial appendage mass seen on intracardiac echo, very large pulmonary veins especially right superior and left inferior veins Successful A. fib ablation/pulmonary vein isolation of all veins using cryo- ablation Complete entrance block in all 4 veins confirmed No evidence for phrenic nerve injury Esophageal deflection YES, right-sided esophagus PROCEDURE DETAILS Written informed consent prior to procedure. Patient brought to the EP lab. General anesthesia given. Heparin administered. A city maintained above 300 seconds Both groins prepped and draped per protocol and venous sheaths placed. Esophagus intubated, circa catheter for temperature monitoring an endoscope for possible esophageal deflection. Phrenic nerve monitoring performed. Esophageal temperature monitoring performed. Esophageal deflection performed if circa catheter overlapping with the balloon or circa temperature less than 27.5C Intracardiac echocardiography performed. Pericardium evaluated. Left atrial appendage evaluated. Left atrium evaluated along with pulmonary veins Transseptal catheterization performed under fluoroscopic guidance and intracardiac echo guidance Cryoablation sheath exchanged, balloon catheter along with achieve catheter placed in the left atrium. Pulmonary veins isolated in the following sequence: Left superior pulmonary vein followed by left inferior pulmonary vein, followed by right inferior pulmonary vein and lastly right superior pulmonary vein. Phrenic nerve stimulation along with capture thresholds within the SVC and right superior pulmonary vein to identify the phrenic nerve proximity to the cryo- balloon. Pulmonary veins isolated and confirmed with entrance and exit block. Phrenic nerve integrity confirmed at the end of the procedure Ablation of the left atrial septum performed with cannulation of the superior branch of the right inferior or the inferior branch of the right superior vein to achieve ablation of the posterior septum of the left atrium. Diagnostic catheters for the high right atrium, His bundle, coronary sinus placed. LA and RA pressures recorded LA pressure: 03/11/12 Diagnostic EP study with coronary sinus pacing and recording Baseline measurements: Sinus cycle length 1093 ms, UT interval 104 ms, QRS 88 ms and QT 345 ms AV node Wenckebach block 320 ms Atrial extra stimulation from the high right atrium. Atrial ERP 500\250 ms Burst stimulation from the high right atrium from 300 ms down to 200 ms. No atrial fibrillation induced High-dose Isopril used and burst stimulation from the coronary sinus performed. 400 ms down to 250 ms. No inducible SVT or atrial fibrillation Later during Isopril recovery spontaneous short bursts of atrial tachycardia, nonsustained, most likely with mechanical stimulation with the guidewire Venous sheaths were removed and hemostasis assured with a closure device. Patient extubated and transferred to recovery Increase procedural time During ablation multiple attempts had to be made to move the esophagus a safe distance of the from the pulmonary vein draining cryoablation, to avoid excessive thermal cooling of the esophagus This took extra time and effort to keep the esophagus a safe distance away from the cryoablation balloon. Large pulmonary veins especially the right superior and left sided veins. Multiple attempts were made to achieve good occlusion of these veins The right superior vein had a very large antrum and therefore multiple short ablations were performed to achieve antral level isolation. Exit block noted as well as entrance block at the end of the procedure for this vein Left-sided veins were also very large especially the left inferior and multiple attempts had to be made Multiple attempts needed for successful cryoablation isolation of the pulmonary vein. Multiple ablations performed, anteriorly as well as posteriorly to achieve antral level isolation PROCEDURES PERFORMED Diagnostic EP study CS pacing and recording Left and right transseptal catheterization Catheter the mapping of the tachycardia Intracardiac echocardiography Pulmonary vein isolation with transseptal and comprehensive EPS, [id number] Extended procedure duration Drug infusion, +[id number] Linear ablation, left atrium, +[id number]
[2024-08-21] MEDS: ACETAMINOPHEN IV (For NPO) 1,000 MG in EMPTY BAG 1 BAG IVPB ONE (15:22)
[2024-08-21] MEDS: hydrALAZINE HCL 20 MG/ML 1 ML VIAL IVP STA (15:37)
[2024-08-21] MEDS: HYDROcodone/APAP 10-325MG 1 EACH TAB PO PRN (18:27)
[2024-08-21] MEDS: APIXABAN 5 MG TAB PO SCH (21:11)
[2024-08-21] MEDS: FLECAINIDE 50 MG TAB PO SCH (21:11)
[2024-08-21 22:30] VITALS: RESP 16
[2024-08-22 07:52] VITALS: BP 125/84; PULSE 84; TEMP 98.3
[2024-08-22] MEDS: VALSARTAN 160 MG TAB PO SCH (08:12)
[2024-08-22] MEDS: DAPAGLIFLOZIN PROPANEDIOL 10 MG TABLET PO SCH (08:12)
[2024-08-22] MEDS: METOPROLOL SUCCINATE (ER) 50 MG TAB.ER.24H PO SCH (08:12)
[2024-08-22] MEDS: ATORVASTATIN 10 MG TAB PO SCH (08:12)
[2024-08-22] MEDS: DULoxetine HCL 60 MG CAPSULE.DR PO SCH (08:12)
[2024-08-22] MEDS: PANTOPRAZOLE 40 MG TABLET PO SCH (08:13)
[2024-08-22] MEDS: hydroCHLOROthiazide 25 MG TAB PO SCH (08:13)
--- NOTE | 2024-08-22 16:06 | P.EPPROC ---
- EP Procedure Note Electrophysiology Procedure Note: Patient is resting comfortably in bed. She has been ambulating around in the room. Her right groin is mildly sore but there is minimal swelling no bruising. Left groin is within normal limits On examinationBlood pressure 125/82 mmHg pulse rate in the 80s afebrile Heart sounds are normal no murmurs or gallop no rub Breath sounds are clear Patient denies any chest discomfort She does have a sore throat and mild soreness in the right groin Impression Paroxysmal atrial fibrillation status post antral level PVI and ablation of the left atrial septum Very large pulmonary veins especially right superior and left inferior Complete isolation antral and antral level performed Following that no inducible atrial fibrillation other than short bursts of atrial tachycardia and very high-dose Isopril, with mechanical stimulation Hypertension Morbid obesity Plan Continue Eliquis uninterrupted Continue flecainide and beta-blockers for now and follow-up with Dr. Saul
== END 2024-08-22 09:10 | disposition home or self-care (01) ==
LOC: CATHEP 09:27 → 6NMEDSUR 14:26 → CATHEP 08-22 09:10
PROVIDERS: ATTEND Internal Medicine Clinical Cardiac Electrophysiology
DX: I48.0 Paroxysmal atrial fibrillation (principal); I47.19 Other supraventricular tachycardia; I25.2 Old myocardial infarction; K21.9 Gastro-esophageal reflux disease without esophagitis; K58.9 Irritable bowel syndrome, unspecified; M19.90 Unspecified osteoarthritis, unspecified site; I10 Essential (primary) hypertension; E66.01 Morbid (severe) obesity due to excess calories; E11.9 Type 2 diabetes mellitus without complications; Z79.01 Long term (current) use of anticoagulants; Z85.41 Personal history of malignant neoplasm of cervix uteri; Z87.891 Personal history of nicotine dependence; Z90.710 Acquired absence of both cervix and uterus; Z79.899 Other long term (current) drug therapy
CPT/HCPCS: 93623; 93656; 93657; 86900; 86901; 86850; C1894; C1769; C1760 ×2; C1730 ×2; C1759; C1733; C1766; J0360; J1644 ×3; J2003; J0131; Q9966

== ENCOUNTER → 2024-09-11 | Outpatient (CLI) | payer BC ==
[2024-09-11 15:14] LABS: HCT 49.2 % (37.2-46.3); HGB 15.8 g/dL (12.0-15.0); MCH 28.8 pg (27.0-32.0); MCHC 32.1 g/dL (32.0-37.0); MCV 89.8 FL (80.0-97.0); Mean Platelet Volume 8.6 FL (9.5-12.2); NRBC Per 100 WBC 0 X 10*3/uL (0.00-0.01); Platelet Count 335 X 10*3/uL (140-440); RBC 5.48 X 10*6/uL (4.10-5.20); RDW 12.9 % (11.5-14.5)
[2024-09-11 15:45] LABS: Blood Urea Nitrogen 13.7 mg/dL (9.0-27.0)
[2024-09-11 15:46] LABS: Chloride 99 mmol/L (96-109); Potassium 4.1 mmol/L (3.5-5.5); Sodium 139 mmol/L (135-145)
== END | disposition home or self-care (01) ==
LOC: LABWHC1 10:10
PROVIDERS: ATTEND Internal Medicine Interventional Cardiology
DX: Z01.812 Encounter for preprocedural laboratory examination (principal); I47.10 Supraventricular tachycardia, unspecified
CPT/HCPCS: 36415; 80051; 82565; 84520; 85027